=== PATIENT | female | born 1980 | race Caucasian/White ===

== ENCOUNTER 2017-05-17 15:00 | Inpatient (IN) | payer OTHER ==
[~2017-05-17] VITALS: Ht 165.1 cm; Wt 62.0 kg
[~2017-05-17 15:00] MED LIST: AMOX250 PO; BIRTHCONTROL; CIPR500 PO; CLON.1; CLON.1 PO; FERR325 PO; FERROUS SULFATE PO; FERSU220EL PO; FOLI1 PO; HYDHCL25 PO; HYDPAM25 PO; Junel Fe 1-201 EACH PO; LACT10SY PO; LORA1 PO; MEDR10 PO; Omeprazole20 M1 PO; POTCHL10ER PO; POTCHL20ER PO; PRAZ1; PRED10 PO; Prednisone20 MG PO; SERT25; SERT25 PO; SERT50 PO; Senna Plus Tab1 EACH PO; VITAMIN B-122000 MCG PO
[2017-05-17] MEDS ORDERED: Junel Fe 1-201 EACH PO (15:20)
[2017-05-17] MEDS ORDERED: HYDPAM25 PO (15:21)
[2017-05-17] MEDS ORDERED: TEMA15 PO (15:23)
[2017-05-17] MEDS ORDERED: CLON.1 PO ×2 (15:24→22:55)
[2017-05-17 15:44] LABS: BASOPHILS ABSOLUTE AUTO 0.03 K/mm3 (0.00-0.23); BASOPHILS PERCENT AUTO 0 % (0-2); EOSINOPHILS ABSOLUTE AUTO 0.05 K/mm3 (0.00-0.68); EOSINOPHILS PERCENT AUTO 1 % (0-6); Hematocrit 33.2 % (33.0-51.0); Hemoglobin 11.7 g/dL (11.5-16.0); IMMATURE GRAN ABSOLUTE AUTO 0.03 K/mm3 (0.00-0.10); IMMATURE GRAN PERCENT AUTO 0 % (0-1); LYMPHOCYTES ABSOLUTE AUTO 1.71 K/mm3 (0.84-5.20); LYMPHOCYTES PERCENT AUTO 22 % (21-46); MONOCYTES ABSOLUTE AUTO 0.45 K/mm3 (0.16-1.47); MONOCYTES PERCENT AUTO 6 % (4-13); Mean Corpuscular HGB Conc 35.2 g/dL (31.5-36.5); Mean Corpuscular Volume 102 fL (80-100); NEUTROPHILS PERCENT AUTO 71 % (41-73); RDW Standard Deviation 67.5 fL (35.1-46.3); Red Blood Cell Count 3.25 M/mm3 (3.80-5.20); White Blood Cell Count 7.87 K/mm3 (4.00-11.30)
[2017-05-17 15:47] LABS: Mean Platelet Volume 9.8 fL (9.1-12.4); Platelet Count 132 K/mm3 (150-400)
[2017-05-17 16:37] LABS: Alanine Aminotransfer (ALT/SGP 152 U/L (12-78); Albumin, Blood 2.3 g/dL (3.4-5.0); Albumin/Globulin Ratio 0.5 (0.8-1.8); Alk Phos 239 U/L (50-136); Anion Gap 16 mmol/L (6-16); Aspartate Aminotrans (AST/SGOT 776 U/L (12-37); Bilirubin, Total 23.9 mg/dL (0.1-1.0); Blood Urea Nitrogen 7 mg/dL (8-24); Bun/Creatinine Ratio 14.3 (12.0-20.0); CO2, Blood 21 mmol/L (21-32); Calcium, Blood 8.3 mg/dL (8.5-10.1); Chloride, Blood 103 mmol/L (98-108); Creatinine, Blood 0.49 mg/dL (0.40-1.00); Globulin, Blood 5.1 g/dL (2.2-4.0); Glomerular Filtration Rate >60 (60-); Glucose, Blood 98 mg/dL (70-99); Potassium, Blood 2.2 mmol/L (3.5-5.5); Sodium, Blood 140 mmol/L (136-145); Total Protein, Blood 7.4 g/dL (6.4-8.2)
[2017-05-17 16:44] LABS: International Normalized Ratio 1.86; Prothrombin Time Results 19.7 Sec (9.7-11.5)
[2017-05-17 16:58] LABS: Source, Urine Voided
[2017-05-17 17:04] LABS: Appearance, Urine Clear (Clear); Blood, Urine 4+ (Neg); Glucose Qualitative, Urine Neg (Neg); Ketones, Urine 2+ (Neg); Leukocyte Esterase, Urine 1+ (Neg); Nitrite, Urine Neg (Neg); Protein, Urine 1+ (Neg); Urobilinogen, Urine 4+ (Normal)
[2017-05-17 17:12] LABS: Bilirubin, Urine 3+ (Neg); Color, Urine Orange (P-Yellow)
[2017-05-17 17:14] LABS: Bacteria Few /hpf; Squamous Epithelial Cells Few /hpf (Few); White Blood Cells, Urine 0-2 /hpf (0-5)
[2017-05-17] MEDS ORDERED: SERT50 PO (22:56)
[2017-05-18 05:50] LABS: BASOPHILS ABSOLUTE AUTO 0.01 K/mm3 (0.00-0.23); BASOPHILS PERCENT AUTO 0 % (0-2); EOSINOPHILS ABSOLUTE AUTO 0.07 K/mm3 (0.00-0.68); EOSINOPHILS PERCENT AUTO 1 % (0-6); Hemoglobin 10.3 g/dL (11.5-16.0); IMMATURE GRAN ABSOLUTE AUTO 0.03 K/mm3 (0.00-0.10); IMMATURE GRAN PERCENT AUTO 1 % (0-1); LYMPHOCYTES ABSOLUTE AUTO 1.28 K/mm3 (0.84-5.20); LYMPHOCYTES PERCENT AUTO 21 % (21-46); MONOCYTES ABSOLUTE AUTO 0.53 K/mm3 (0.16-1.47); MONOCYTES PERCENT AUTO 9 % (4-13); Mean Corpuscular HGB 35.9 pg (26.0-34.0); Mean Corpuscular HGB Conc 35.5 g/dL (31.5-36.5); Mean Corpuscular Volume 101 fL (80-100); Mean Platelet Volume 9.4 fL (9.1-12.4); NEUTROPHILS ABSOLUTE AUTO 4.25 K/mm3 (1.96-9.15); NEUTROPHILS PERCENT AUTO 69 % (41-73); Platelet Count 106 K/mm3 (150-400); RDW Coefficient Variation 18.5 % (11.7-14.2); RDW Standard Deviation 68.3 fL (35.1-46.3); Red Blood Cell Count 2.87 M/mm3 (3.80-5.20); White Blood Cell Count 6.17 K/mm3 (4.00-11.30)
[2017-05-18 06:09] LABS: International Normalized Ratio 1.81; Prothrombin Time Results 19.2 Sec (9.7-11.5)
[2017-05-18 06:16] LABS: Alanine Aminotransfer (ALT/SGP 147 U/L (12-78); Albumin, Blood 2.1 g/dL (3.4-5.0); Albumin/Globulin Ratio 0.4 (0.8-1.8); Alk Phos 205 U/L (50-136); Anion Gap 10 mmol/L (6-16); Aspartate Aminotrans (AST/SGOT 660 U/L (12-37); Bilirubin, Total 23.2 mg/dL (0.1-1.0); Blood Urea Nitrogen 6 mg/dL (8-24); Bun/Creatinine Ratio 11.4 (12.0-20.0); CO2, Blood 23 mmol/L (21-32); Calcium, Blood 7.6 mg/dL (8.5-10.1); Chloride, Blood 109 mmol/L (98-108); Creatinine, Blood 0.53 mg/dL (0.40-1.00); Globulin, Blood 4.7 g/dL (2.2-4.0); Glomerular Filtration Rate >60 (60-); Glucose, Blood 125 mg/dL (70-99); Sodium, Blood 142 mmol/L (136-145); Total Protein, Blood 6.8 g/dL (6.4-8.2)
[2017-05-18 06:18] LABS: Potassium, Blood 2.1 mmol/L (3.5-5.5)
[2017-05-18 16:52] LABS: Anion Gap 11 mmol/L (6-16); Blood Urea Nitrogen 6 mg/dL (8-24); Bun/Creatinine Ratio 11.2 (12.0-20.0); CO2, Blood 20 mmol/L (21-32); Calcium, Blood 8.2 mg/dL (8.5-10.1); Chloride, Blood 113 mmol/L (98-108); Creatinine, Blood 0.54 mg/dL (0.40-1.00); Glomerular Filtration Rate >60 (60-); Glucose, Blood 163 mg/dL (70-99); Potassium, Blood 2.8 mmol/L (3.5-5.5); Sodium, Blood 144 mmol/L (136-145)
[2017-05-19 07:56] LABS: Alanine Aminotransfer (ALT/SGP 162 U/L (12-78); Albumin, Blood 1.9 g/dL (3.4-5.0); Albumin/Globulin Ratio 0.4 (0.8-1.8); Alk Phos 190 U/L (50-136); Anion Gap 9 mmol/L (6-16); Aspartate Aminotrans (AST/SGOT 535 U/L (12-37); Bilirubin, Total 22.9 mg/dL (0.1-1.0); Blood Urea Nitrogen 5 mg/dL (8-24); Bun/Creatinine Ratio 9.1 (12.0-20.0); CO2, Blood 21 mmol/L (21-32); Chloride, Blood 116 mmol/L (98-108); Creatinine, Blood 0.55 mg/dL (0.40-1.00); Globulin, Blood 4.7 g/dL (2.2-4.0); Glomerular Filtration Rate >60 (60-); Glucose, Blood 137 mg/dL (70-99); Potassium, Blood 2.8 mmol/L (3.5-5.5); Sodium, Blood 146 mmol/L (136-145); Total Protein, Blood 6.6 g/dL (6.4-8.2)
[2017-05-19 08:46] LABS: BASOPHILS ABSOLUTE AUTO 0.04 K/mm3 (0.00-0.23); BASOPHILS PERCENT AUTO 1 % (0-2); EOSINOPHILS ABSOLUTE AUTO 0.12 K/mm3 (0.00-0.68); EOSINOPHILS PERCENT AUTO 2 % (0-6); Hematocrit 28.6 % (33.0-51.0); Hemoglobin 9.8 g/dL (11.5-16.0); IMMATURE GRAN ABSOLUTE AUTO 0.02 K/mm3 (0.00-0.10); IMMATURE GRAN PERCENT AUTO 0 % (0-1); LYMPHOCYTES ABSOLUTE AUTO 1.15 K/mm3 (0.84-5.20); LYMPHOCYTES PERCENT AUTO 20 % (21-46); MONOCYTES ABSOLUTE AUTO 0.47 K/mm3 (0.16-1.47); MONOCYTES PERCENT AUTO 8 % (4-13); Mean Corpuscular HGB 35.6 pg (26.0-34.0); Mean Corpuscular HGB Conc 34.3 g/dL (31.5-36.5); Mean Platelet Volume 10.1 fL (9.1-12.4); NEUTROPHILS ABSOLUTE AUTO 3.83 K/mm3 (1.96-9.15); NEUTROPHILS PERCENT AUTO 68 % (41-73); Platelet Count 109 K/mm3 (150-400); RDW Coefficient Variation 19.5 % (11.7-14.2); RDW Standard Deviation 73.5 fL (35.1-46.3); Red Blood Cell Count 2.75 M/mm3 (3.80-5.20); White Blood Cell Count 5.63 K/mm3 (4.00-11.30)
[2017-05-19 08:47] LABS: Mean Corpuscular Volume 104 fL (80-100)
[2017-05-19 09:15] LABS: Alanine Aminotransfer (ALT/SGP 161 U/L (12-78); Albumin, Blood 1.9 g/dL (3.4-5.0); Albumin/Globulin Ratio 0.4 (0.8-1.8); Alk Phos 192 U/L (50-136); Anion Gap 9 mmol/L (6-16); Aspartate Aminotrans (AST/SGOT 531 U/L (12-37); Bilirubin, Total 23.1 mg/dL (0.1-1.0); Blood Urea Nitrogen 4 mg/dL (8-24); Bun/Creatinine Ratio 6.8 (12.0-20.0); CO2, Blood 21 mmol/L (21-32); Calcium, Blood 7.9 mg/dL (8.5-10.1); Chloride, Blood 116 mmol/L (98-108); Creatinine, Blood 0.59 mg/dL (0.40-1.00); Globulin, Blood 4.6 g/dL (2.2-4.0); Glomerular Filtration Rate >60 (60-); Glucose, Blood 118 mg/dL (70-99); Potassium, Blood 2.9 mmol/L (3.5-5.5); Sodium, Blood 146 mmol/L (136-145); Total Protein, Blood 6.5 g/dL (6.4-8.2)
[2017-05-20 07:57] LABS: BASOPHILS ABSOLUTE AUTO 0.03 K/mm3 (0.00-0.23); BASOPHILS PERCENT AUTO 1 % (0-2); EOSINOPHILS ABSOLUTE AUTO 0.13 K/mm3 (0.00-0.68); EOSINOPHILS PERCENT AUTO 2 % (0-6); Hematocrit 27.4 % (33.0-51.0); Hemoglobin 9.4 g/dL (11.5-16.0); Mean Corpuscular HGB 35.7 pg (26.0-34.0); Mean Corpuscular HGB Conc 34.3 g/dL (31.5-36.5); Mean Corpuscular Volume 104 fL (80-100); Platelet Count 107 K/mm3 (150-400); RDW Coefficient Variation 19.6 % (11.7-14.2); RDW Standard Deviation 74.3 fL (35.1-46.3); Red Blood Cell Count 2.63 M/mm3 (3.80-5.20); White Blood Cell Count 6.23 K/mm3 (4.00-11.30)
[2017-05-20 08:01] LABS: IMMATURE GRAN ABSOLUTE AUTO 0.03 K/mm3 (0.00-0.10); IMMATURE GRAN PERCENT AUTO 1 % (0-1); LYMPHOCYTES PERCENT AUTO 29 % (21-46); MONOCYTES PERCENT AUTO 8 % (4-13); NEUTROPHILS ABSOLUTE AUTO 3.74 K/mm3 (1.96-9.15); NEUTROPHILS PERCENT AUTO 60 % (41-73)
[2017-05-20 08:20] LABS: Alanine Aminotransfer (ALT/SGP 161 U/L (12-78); Albumin, Blood 1.9 g/dL (3.4-5.0); Albumin/Globulin Ratio 0.4 (0.8-1.8); Alk Phos 179 U/L (50-136); Anion Gap 7 mmol/L (6-16); Aspartate Aminotrans (AST/SGOT 363 U/L (12-37); Bilirubin, Total 24.5 mg/dL (0.1-1.0); Blood Urea Nitrogen 4 mg/dL (8-24); Bun/Creatinine Ratio 7.8 (12.0-20.0); CO2, Blood 23 mmol/L (21-32); Chloride, Blood 108 mmol/L (98-108); Creatinine, Blood 0.51 mg/dL (0.40-1.00); Globulin, Blood 4.7 g/dL (2.2-4.0); Glomerular Filtration Rate >60 (60-); Glucose, Blood 78 mg/dL (70-99); Potassium, Blood 3.3 mmol/L (3.5-5.5); Sodium, Blood 138 mmol/L (136-145); Total Protein, Blood 6.6 g/dL (6.4-8.2)
[2017-05-21 07:20] LABS: BASOPHILS ABSOLUTE AUTO 0.02 K/mm3 (0.00-0.23); BASOPHILS PERCENT AUTO 1 % (0-2); EOSINOPHILS ABSOLUTE AUTO 0.06 K/mm3 (0.00-0.68); EOSINOPHILS PERCENT AUTO 1 % (0-6); Hematocrit 26.4 % (33.0-51.0); Hemoglobin 9.1 g/dL (11.5-16.0); IMMATURE GRAN ABSOLUTE AUTO 0.03 K/mm3 (0.00-0.10); IMMATURE GRAN PERCENT AUTO 1 % (0-1); LYMPHOCYTES ABSOLUTE AUTO 0.96 K/mm3 (0.84-5.20); LYMPHOCYTES PERCENT AUTO 22 % (21-46); MONOCYTES ABSOLUTE AUTO 0.46 K/mm3 (0.16-1.47); MONOCYTES PERCENT AUTO 11 % (4-13); Mean Corpuscular HGB 36.4 pg (26.0-34.0); Mean Corpuscular HGB Conc 34.5 g/dL (31.5-36.5); Mean Corpuscular Volume 106 fL (80-100); Mean Platelet Volume 10.2 fL (9.1-12.4); NEUTROPHILS ABSOLUTE AUTO 2.86 K/mm3 (1.96-9.15); NEUTROPHILS PERCENT AUTO 65 % (41-73); Platelet Count 98 K/mm3 (150-400); RDW Coefficient Variation 19.5 % (11.7-14.2); RDW Standard Deviation 74.4 fL (35.1-46.3); White Blood Cell Count 4.39 K/mm3 (4.00-11.30)
[2017-05-21 08:04] LABS: Alanine Aminotransfer (ALT/SGP 136 U/L (12-78); Albumin, Blood 1.7 g/dL (3.4-5.0); Albumin/Globulin Ratio 0.4 (0.8-1.8); Alk Phos 169 U/L (50-136); Anion Gap 8 mmol/L (6-16); Aspartate Aminotrans (AST/SGOT 240 U/L (12-37); Bilirubin, Total 23.8 mg/dL (0.1-1.0); Blood Urea Nitrogen 5 mg/dL (8-24); Bun/Creatinine Ratio 9.6 (12.0-20.0); CO2, Blood 21 mmol/L (21-32); Calcium, Blood 8.1 mg/dL (8.5-10.1); Chloride, Blood 106 mmol/L (98-108); Creatinine, Blood 0.52 mg/dL (0.40-1.00); Globulin, Blood 4.6 g/dL (2.2-4.0); Glomerular Filtration Rate >60 (60-); Glucose, Blood 90 mg/dL (70-99); Potassium, Blood 3.3 mmol/L (3.5-5.5); Sodium, Blood 135 mmol/L (136-145); Total Protein, Blood 6.3 g/dL (6.4-8.2)
[2017-05-23 06:06] LABS: BASOPHILS ABSOLUTE AUTO 0.03 K/mm3 (0.00-0.23); BASOPHILS PERCENT AUTO 1 % (0-2); EOSINOPHILS ABSOLUTE AUTO 0.09 K/mm3 (0.00-0.68); EOSINOPHILS PERCENT AUTO 2 % (0-6); Hematocrit 26.5 % (33.0-51.0); Hemoglobin 9.1 g/dL (11.5-16.0); IMMATURE GRAN ABSOLUTE AUTO 0.04 K/mm3 (0.00-0.10); IMMATURE GRAN PERCENT AUTO 1 % (0-1); LYMPHOCYTES ABSOLUTE AUTO 1.12 K/mm3 (0.84-5.20); LYMPHOCYTES PERCENT AUTO 26 % (21-46); MONOCYTES ABSOLUTE AUTO 0.49 K/mm3 (0.16-1.47); MONOCYTES PERCENT AUTO 11 % (4-13); Mean Corpuscular HGB 36.4 pg (26.0-34.0); Mean Corpuscular HGB Conc 34.3 g/dL (31.5-36.5); Mean Corpuscular Volume 106 fL (80-100); Mean Platelet Volume 10.3 fL (9.1-12.4); NEUTROPHILS ABSOLUTE AUTO 2.63 K/mm3 (1.96-9.15); NEUTROPHILS PERCENT AUTO 60 % (41-73); NRBC ABSOLUTE 0.02 K/mm3 (0.00-0.02); NRBC Auto 0.5 /100 WBC (0.0-0.2); Platelet Count 105 K/mm3 (150-400); RDW Coefficient Variation 19.9 % (11.7-14.2); RDW Standard Deviation 77.4 fL (35.1-46.3)
[2017-05-23 06:32] LABS: Alanine Aminotransfer (ALT/SGP 101 U/L (12-78); Albumin, Blood 1.6 g/dL (3.4-5.0); Albumin/Globulin Ratio 0.4 (0.8-1.8); Alk Phos 156 U/L (50-136); Anion Gap 9 mmol/L (6-16); Aspartate Aminotrans (AST/SGOT 124 U/L (12-37); Bilirubin, Total 23.3 mg/dL (0.1-1.0); Blood Urea Nitrogen 5 mg/dL (8-24); Bun/Creatinine Ratio 11.4 (12.0-20.0); CO2, Blood 22 mmol/L (21-32); Calcium, Blood 7.8 mg/dL (8.5-10.1); Chloride, Blood 106 mmol/L (98-108); Creatinine, Blood 0.44 mg/dL (0.40-1.00); Globulin, Blood 4.4 g/dL (2.2-4.0); Glomerular Filtration Rate >60 (60-); Glucose, Blood 100 mg/dL (70-99); Sodium, Blood 137 mmol/L (136-145)
[2017-05-24 05:48] LABS: BASOPHILS ABSOLUTE AUTO 0.03 K/mm3 (0.00-0.23); BASOPHILS PERCENT AUTO 1 % (0-2); EOSINOPHILS ABSOLUTE AUTO 0.07 K/mm3 (0.00-0.68); EOSINOPHILS PERCENT AUTO 2 % (0-6); Hematocrit 27.3 % (33.0-51.0); Hemoglobin 9.2 g/dL (11.5-16.0); IMMATURE GRAN ABSOLUTE AUTO 0.05 K/mm3 (0.00-0.10); IMMATURE GRAN PERCENT AUTO 1 % (0-1); LYMPHOCYTES ABSOLUTE AUTO 1.24 K/mm3 (0.84-5.20); LYMPHOCYTES PERCENT AUTO 28 % (21-46); MONOCYTES ABSOLUTE AUTO 0.46 K/mm3 (0.16-1.47); MONOCYTES PERCENT AUTO 11 % (4-13); Mean Corpuscular HGB 36.1 pg (26.0-34.0); Mean Corpuscular HGB Conc 33.7 g/dL (31.5-36.5); Mean Corpuscular Volume 107 fL (80-100); Mean Platelet Volume 10.3 fL (9.1-12.4); NEUTROPHILS ABSOLUTE AUTO 2.54 K/mm3 (1.96-9.15); NEUTROPHILS PERCENT AUTO 58 % (41-73); Platelet Count 119 K/mm3 (150-400); RDW Coefficient Variation 19.9 % (11.7-14.2); RDW Standard Deviation 78.9 fL (35.1-46.3); Red Blood Cell Count 2.55 M/mm3 (3.80-5.20); White Blood Cell Count 4.39 K/mm3 (4.00-11.30)
[2017-05-24 06:12] LABS: Alanine Aminotransfer (ALT/SGP 89 U/L (12-78); Albumin, Blood 1.7 g/dL (3.4-5.0); Albumin/Globulin Ratio 0.4 (0.8-1.8); Alk Phos 155 U/L (50-136); Anion Gap 9 mmol/L (6-16); Aspartate Aminotrans (AST/SGOT 104 U/L (12-37); Blood Urea Nitrogen 6 mg/dL (8-24); Bun/Creatinine Ratio 11.7 (12.0-20.0); CO2, Blood 23 mmol/L (21-32); Calcium, Blood 7.8 mg/dL (8.5-10.1); Chloride, Blood 106 mmol/L (98-108); Creatinine, Blood 0.51 mg/dL (0.40-1.00); Globulin, Blood 4.6 g/dL (2.2-4.0); Glomerular Filtration Rate >60 (60-); Glucose, Blood 91 mg/dL (70-99); Sodium, Blood 138 mmol/L (136-145); Total Protein, Blood 6.3 g/dL (6.4-8.2)
[2017-05-25 05:10] LABS: BASOPHILS ABSOLUTE AUTO 0.03 K/mm3 (0.00-0.23); BASOPHILS PERCENT AUTO 1 % (0-2); EOSINOPHILS ABSOLUTE AUTO 0.09 K/mm3 (0.00-0.68); EOSINOPHILS PERCENT AUTO 2 % (0-6); Hematocrit 26.8 % (33.0-51.0); IMMATURE GRAN ABSOLUTE AUTO 0.03 K/mm3 (0.00-0.10); IMMATURE GRAN PERCENT AUTO 1 % (0-1); LYMPHOCYTES ABSOLUTE AUTO 1.53 K/mm3 (0.84-5.20); LYMPHOCYTES PERCENT AUTO 29 % (21-46); MONOCYTES ABSOLUTE AUTO 0.71 K/mm3 (0.16-1.47); MONOCYTES PERCENT AUTO 13 % (4-13); Mean Corpuscular HGB 36.6 pg (26.0-34.0); Mean Corpuscular HGB Conc 33.6 g/dL (31.5-36.5); Mean Corpuscular Volume 109 fL (80-100); Mean Platelet Volume 9.9 fL (9.1-12.4); NEUTROPHILS ABSOLUTE AUTO 2.93 K/mm3 (1.96-9.15); NEUTROPHILS PERCENT AUTO 55 % (41-73); NRBC ABSOLUTE 0.02 K/mm3 (0.00-0.02); NRBC Auto 0.4 /100 WBC (0.0-0.2); Platelet Count 124 K/mm3 (150-400); RDW Coefficient Variation 20.6 % (11.7-14.2); RDW Standard Deviation 82.3 fL (35.1-46.3); Red Blood Cell Count 2.46 M/mm3 (3.80-5.20); White Blood Cell Count 5.32 K/mm3 (4.00-11.30)
[2017-05-25 05:39] LABS: Alanine Aminotransfer (ALT/SGP 76 U/L (12-78); Albumin, Blood 1.7 g/dL (3.4-5.0); Albumin/Globulin Ratio 0.4 (0.8-1.8); Alk Phos 149 U/L (50-136); Anion Gap 8 mmol/L (6-16); Aspartate Aminotrans (AST/SGOT 97 U/L (12-37); Bilirubin, Total 23.7 mg/dL (0.1-1.0); Blood Urea Nitrogen 7 mg/dL (8-24); Bun/Creatinine Ratio 13.1 (12.0-20.0); CO2, Blood 21 mmol/L (21-32); Calcium, Blood 7.7 mg/dL (8.5-10.1); Chloride, Blood 109 mmol/L (98-108); Creatinine, Blood 0.54 mg/dL (0.40-1.00); Globulin, Blood 4.4 g/dL (2.2-4.0); Glomerular Filtration Rate >60 (60-); Glucose, Blood 71 mg/dL (70-99); Potassium, Blood 3.9 mmol/L (3.5-5.5); Sodium, Blood 138 mmol/L (136-145); Total Protein, Blood 6.1 g/dL (6.4-8.2)
[2017-05-25] MEDS ORDERED: LORA1 PO (11:47)
[2017-05-25] MEDS ORDERED: POTCHL20ER PO (11:48)
[2017-05-25] MEDS ORDERED: ONE DAILY COMP1 EACH PO (11:50)
[2017-05-25] MEDS ORDERED: THIA100 PO (11:51)
[2018-02-22] MEDS ORDERED: GABA300 PO (09:04)
[2018-02-22] MEDS ORDERED: SERT25 PO (09:04)
[2018-02-22] MEDS ORDERED: SPIR50 PO (09:05)
[2018-02-22] MEDS ORDERED: POTCHL10ER PO (09:05)
[2018-02-27] MEDS ORDERED: MAGOXI400 PO (13:46)
[2018-02-27] MEDS ORDERED: LACT10SY PO (13:46)
[2018-02-27] MEDS ORDERED: FOLI1 PO (13:47)
[2018-02-27] MEDS ORDERED: Hair, Skin & N1 EACH PO (13:47)
[2018-03-10] MEDS ORDERED: K-Dur20 MEQ PO (21:39)
[2018-03-15] MEDS ORDERED: LORA1 PO (19:19)
[2018-03-17] MEDS ORDERED: THIA100 PO (15:28)
[2018-03-17] MEDS ORDERED: CEPH500 PO (15:29)
[2018-03-21] MEDS ORDERED: POTCHL20ER PO (14:47)
[2018-03-21] MEDS ORDERED: LORA.5 PO (14:54)
== END 2017-05-25 17:33 | disposition home or self-care (01) | DRG 442 ==
LOC: ER 15:00 → MEDS 17:33 → ENPENDDIS 05-25 10:41 → MEDS 05-25 17:33
PROVIDERS: Family Medicine; Internal Medicine; Internal Medicine Endocrinology, Diabetes & Metabolism; Nurse Practitioner Family
DX: K72.00 Acute and subacute hepatic failure without coma (principal); K76.6 Portal hypertension; K70.10 Alcoholic hepatitis without ascites; R16.2 Hepatomegaly with splenomegaly, not elsewhere classified; E87.6 Hypokalemia; K70.30 Alcoholic cirrhosis of liver without ascites; R79.1 Abnormal coagulation profile; F10.20 Alcohol dependence, uncomplicated; D63.8 Anemia in other chronic diseases classified elsewhere; E80.6 Other disorders of bilirubin metabolism; Z79.899 Other long term (current) drug therapy; Z79.52 Long term (current) use of systemic steroids; Z91.14 Patient's other noncompliance with medication regimen
CPT/HCPCS: 36415; 80048; 80053; 81001; 82140; 83735; 85025; 85610; 87086; 93005; 93010; 96365; 96366; 96375; 97161; 97530; 99285; C9113; G8978; G8979; G8980; J2001; J2060; J2405; J3411; J3475; J3480; J7030; J7042

== ENCOUNTER → 2018-05-30 | Outpatient (CLI) | payer OTHER ==
[~2018-05-30] MED LIST changes: +CEPH500 PO; +GABA300 PO; +Hair, Skin & N1 EACH PO; +K-Dur20 MEQ PO; +LORA.5 PO; +MAGOXI400 PO; +ONE DAILY COMP1 EACH PO; +SPIR50 PO; +TEMA15 PO; +THIA100 PO
== END | disposition home or self-care (01) ==
LOC: LAB SHORT 16:39 → LAB EV 16:39
DX: N39.0 Urinary tract infection, site not specified (principal)
CPT/HCPCS: 87086; 87147

== ENCOUNTER → 2019-04-05 | Outpatient (CLI) | payer OTHER ==
[~2019-04-05] MED LIST changes: +ASCO500 PO; +FERSU300 PO; +SERT100 PO
[2019-04-05 15:03] LABS: BASOPHILS ABSOLUTE AUTO 0.01 K/mm3 (0.00-0.23); BASOPHILS PERCENT AUTO 1 % (0-2); EOSINOPHILS ABSOLUTE AUTO 0.05 K/mm3 (0.00-0.68); EOSINOPHILS PERCENT AUTO 2 % (0-6); Hematocrit 30.9 % (33.0-51.0); Hemoglobin 10.3 g/dL (11.5-16.0); IMMATURE GRAN ABSOLUTE AUTO 0.01 K/mm3 (0.00-0.10); IMMATURE GRAN PERCENT AUTO 1 % (0-1); LYMPHOCYTES ABSOLUTE AUTO 0.79 K/mm3 (0.84-5.20); LYMPHOCYTES PERCENT AUTO 38 % (21-46); MONOCYTES ABSOLUTE AUTO 0.25 K/mm3 (0.16-1.47); MONOCYTES PERCENT AUTO 12 % (4-13); Mean Corpuscular HGB 33.7 pg (26.0-34.0); Mean Corpuscular HGB Conc 33.3 g/dL (31.5-36.5); NEUTROPHILS ABSOLUTE AUTO 0.95 K/mm3 (1.96-9.15); NEUTROPHILS PERCENT AUTO 46 % (41-73); RDW Coefficient Variation 15.6 % (11.7-14.2); Red Blood Cell Count 3.06 M/mm3 (3.80-5.20); White Blood Cell Count 2.06 K/mm3 (4.00-11.30)
[2019-04-05 15:09] LABS: Mean Corpuscular Volume 101 fL (80-100); Mean Platelet Volume 10.4 fL (9.1-12.4); Platelet Count 76 K/mm3 (150-400)
[2019-04-05 15:12] LABS: Alanine Aminotransfer (ALT/SGP 33 U/L (12-78); Albumin, Blood 3.4 g/dL (3.4-5.0); Alk Phos 122 U/L (40-126); Anion Gap 14 mmol/L (6-16); Aspartate Aminotrans (AST/SGOT 60 U/L (12-37); Bilirubin, Total 0.9 mg/dL (0.1-1.0); Blood Urea Nitrogen 9 mg/dL (8-24); Bun/Creatinine Ratio 11.8 (12.0-20.0); CO2, Blood 24 mmol/L (21-32); Calcium, Blood 9.1 mg/dL (8.5-10.1); Chloride, Blood 106 mmol/L (98-108); Creatinine, Blood 0.76 mg/dL (0.40-1.00); Globulin, Blood 3.4 g/dL (2.2-4.0); Glomerular Filtration Rate >60 (60-); Glucose, Blood 76 mg/dL (70-99); Potassium, Blood 3.6 mmol/L (3.5-5.5); Sodium, Blood 144 mmol/L (136-145); Total Protein, Blood 6.8 g/dL (6.4-8.2)
[2019-04-05 16:01] LABS: International Normalized Ratio 1.38; Prothrombin Time Results 14.2 Sec (9.7-11.5)
== END | disposition home or self-care (01) ==
LOC: LAB EV 14:53 → LAB SHORT 14:53
PROVIDERS: Physician Assistant
DX: D68.59 Other primary thrombophilia (principal); R55 Syncope and collapse; N39.0 Urinary tract infection, site not specified
CPT/HCPCS: 80053; 85025; 85245; 85246; 85610; 85730; 87086

== ENCOUNTER 2019-04-06 11:13 | Emergency (ER) | payer OTHER ==
[~2019-04-06] VITALS: Ht 170.2 cm; Wt 65.8 kg
[~2019-04-06 11:13] MED LIST changes: -ASCO500 PO; -FERSU300 PO
[2019-04-06] MEDS ORDERED: ASCO500 PO (12:19)
[2019-04-06] MEDS ORDERED: FERSU300 PO (12:20)
== END 2019-04-06 14:00 | disposition home or self-care (01) ==
LOC: ER 11:13
DX: F10.20 Alcohol dependence, uncomplicated (principal); R53.1 Weakness; R79.9 Abnormal finding of blood chemistry, unspecified; Z79.899 Other long term (current) drug therapy
CPT/HCPCS: 80053; 85025; 99283

== ENCOUNTER 2020-04-29 14:36 | Emergency (ER) | payer OTHER ==
[~2020-04-29] VITALS: Ht 170.2 cm; Wt 70.3 kg
[~2020-04-29 14:36] MED LIST changes: +ASCO500 PO; +FERSU300 PO
[2020-04-29 15:19] LABS: BASOPHILS ABSOLUTE AUTO 0.03 K/mm3 (0.00-0.23); BASOPHILS PERCENT AUTO 1 % (0-2); EOSINOPHILS ABSOLUTE AUTO 0.06 K/mm3 (0.00-0.68); EOSINOPHILS PERCENT AUTO 2 % (0-6); Hematocrit 24.7 % (33.0-51.0); Hemoglobin 8.3 g/dL (11.5-16.0); IMMATURE GRAN ABSOLUTE AUTO 0.01 K/mm3 (0.00-0.10); IMMATURE GRAN PERCENT AUTO 0 % (0-1); LYMPHOCYTES ABSOLUTE AUTO 1.41 K/mm3 (0.84-5.20); LYMPHOCYTES PERCENT AUTO 35 % (21-46); MONOCYTES ABSOLUTE AUTO 0.25 K/mm3 (0.16-1.47); MONOCYTES PERCENT AUTO 6 % (4-13); Mean Corpuscular HGB 34.9 pg (26.0-34.0); Mean Corpuscular HGB Conc 33.6 g/dL (31.5-36.5); Mean Corpuscular Volume 104 fL (80-100); Mean Platelet Volume 9.8 fL (9.1-12.4); NEUTROPHILS ABSOLUTE AUTO 2.28 K/mm3 (1.96-9.15); NEUTROPHILS PERCENT AUTO 57 % (41-73); Platelet Count 119 K/mm3 (150-400); RDW Coefficient Variation 15.4 % (11.7-14.2); Red Blood Cell Count 2.38 M/mm3 (3.80-5.20); White Blood Cell Count 4.04 K/mm3 (4.00-11.30)
[2020-04-29 15:38] LABS: Alanine Aminotransfer (ALT/SGP 49 U/L (12-78); Albumin, Blood 3.6 g/dL (3.4-5.0); Alk Phos 140 U/L (50-136); Anion Gap 9 mmol/L (6-16); Aspartate Aminotrans (AST/SGOT 100 U/L (12-37); Bilirubin, Total 1.5 mg/dL (0.1-1.0); Blood Urea Nitrogen 12 mg/dL (8-24); Bun/Creatinine Ratio 18.7 (12.0-20.0); CO2, Blood 25 mmol/L (21-32); Calcium, Blood 8.6 mg/dL (8.5-10.1); Chloride, Blood 107 mmol/L (98-108); Creatinine, Blood 0.64 mg/dL (0.40-1.00); Globulin, Blood 3.7 g/dL (2.2-4.0); Glomerular Filtration Rate >60 (60-); Glucose, Blood 97 mg/dL (70-99); Potassium, Blood 3.8 mmol/L (3.5-5.5); Sodium, Blood 141 mmol/L (136-145); Total Protein, Blood 7.3 g/dL (6.4-8.2)
[2020-04-29 19:00] LABS: Calcium, Ionized (POC) 1.11 mmol/L (1.10-1.46); Chloride (POC) 104 mmol/L (98-108); Creatinine (POC) 0.6 mg/dL (0.6-1.0); Glucose (ISTAT POC) 81 mg/dL (70-99); Hemoglobin (POC) 7.8 g/dL (12.0-16.0); Potassium (POC) 3.4 mmol/L (3.5-5.5); Sodium (POC) 139 mmol/L (135-148); Total CO2 (POC) 24 mmol/L (21-32)
== END 2020-04-29 20:56 | disposition home or self-care (01) ==
LOC: ER 14:36
PROVIDERS: Physician Assistant; Student in an Organized Health Care Education/Training Program
DX: N92.0 Excessive and frequent menstruation with regular cycle (principal); Z79.899 Other long term (current) drug therapy
CPT/HCPCS: 36415; 80047; 80053; 84703; 85014; 85025; 86850; 86900; 86901; 99284; A9270

== ENCOUNTER 2020-06-18 12:04 | Inpatient (IN) | payer OTHER ==
[~2020-06-18] VITALS: Ht 170.2 cm; Wt 73.7 kg
--- NOTE | 2020-06-18 12:30 | NUR ---
PT ARRIVED DIRECT ADMIT TO ROOM 209 PT BEING ADMITTED FOR HEAVY VAGINAL BLEEDING REPORTS 4 DAYS WITH LG CLOTS WEARING ATTENDS PT STATED SHE HAS HAD THIS HAPPEN IN THE PAST PT IS VERY PALE ORIENTED TO ROOM
[2020-06-18 13:58] LABS: BASOPHILS ABSOLUTE AUTO 0.01 K/mm3 (0.00-0.23); BASOPHILS PERCENT AUTO 0 % (0-2); EOSINOPHILS ABSOLUTE AUTO 0.15 K/mm3 (0.00-0.68); EOSINOPHILS PERCENT AUTO 4 % (0-6); Hematocrit 19.6 % (33.0-51.0); Hemoglobin 6.3 g/dL (11.5-16.0); IMMATURE GRAN ABSOLUTE AUTO 0.01 K/mm3 (0.00-0.10); IMMATURE GRAN PERCENT AUTO 0 % (0-1); LYMPHOCYTES ABSOLUTE AUTO 1.62 K/mm3 (0.84-5.20); LYMPHOCYTES PERCENT AUTO 39 % (21-46); MONOCYTES ABSOLUTE AUTO 0.28 K/mm3 (0.16-1.47); MONOCYTES PERCENT AUTO 7 % (4-13); Mean Corpuscular HGB 32.5 pg (26.0-34.0); Mean Corpuscular HGB Conc 32.1 g/dL (31.5-36.5); Mean Corpuscular Volume 101 fL (80-100); Mean Platelet Volume 9.7 fL (9.1-12.4); NEUTROPHILS PERCENT AUTO 51 % (41-73); Platelet Count 123 K/mm3 (150-400); RDW Coefficient Variation 16.6 % (11.7-14.2); Red Blood Cell Count 1.94 M/mm3 (3.80-5.20); White Blood Cell Count 4.17 K/mm3 (4.00-11.30)
[2020-06-18 14:13] LABS: Anion Gap 8 mmol/L (6-16); Blood Urea Nitrogen 9 mg/dL (8-24); Bun/Creatinine Ratio 12.8 (12.0-20.0); CO2, Blood 23 mmol/L (21-32); Calcium, Blood 7.9 mg/dL (8.5-10.1); Chloride, Blood 110 mmol/L (98-108); Glomerular Filtration Rate >60 (60-); Glucose, Blood 89 mg/dL (70-99); Potassium, Blood 4.5 mmol/L (3.5-5.5); Sodium, Blood 141 mmol/L (136-145)
--- NOTE | 2020-06-18 15:15 | NUR ---
[address] SARKAR BY TO SEE PT
--- NOTE | 2020-06-18 17:45 | NUR ---
SECOND UNIT PRBC INFUSING PT HAD PEVLIC US
[2020-06-18 23:08] LABS: Hematocrit 20.6 % (33.0-51.0); Hemoglobin 6.9 g/dL (11.5-16.0); Mean Corpuscular HGB 32.2 pg (26.0-34.0); Mean Corpuscular HGB Conc 33.5 g/dL (31.5-36.5); Mean Platelet Volume 9.3 fL (9.1-12.4); Platelet Count 107 K/mm3 (150-400); RDW Coefficient Variation 17.3 % (11.7-14.2); RDW Standard Deviation 58.4 fL (35.1-46.3); Red Blood Cell Count 2.14 M/mm3 (3.80-5.20); White Blood Cell Count 3.42 K/mm3 (4.00-11.30)
[2020-06-18 23:09] LABS: Mean Corpuscular Volume 96 fL (80-100)
[2020-06-18 23:21] LABS: International Normalized Ratio 1.2; Prothrombin Time Results 12.7 Sec (9.7-11.5)
[2020-06-18 23:24] LABS: Albumin, Blood 2.4 g/dL (3.4-5.0); Albumin/Globulin Ratio 0.8 (0.8-1.8); Bilirubin, Direct 0.8 mg/dL (0.0-0.3); Bilirubin, Indirect 1.6 mg/dL (0.1-0.7); Bilirubin, Total 2.4 mg/dL (0.1-1.0); Total Protein, Blood 5.4 g/dL (6.4-8.2)
[2020-06-19 05:23] LABS: BASOPHILS ABSOLUTE AUTO 0.01 K/mm3 (0.00-0.23); BASOPHILS PERCENT AUTO 0 % (0-2); EOSINOPHILS ABSOLUTE AUTO 0.16 K/mm3 (0.00-0.68); EOSINOPHILS PERCENT AUTO 5 % (0-6); Hematocrit 23.7 % (33.0-51.0); Hemoglobin 7.9 g/dL (11.5-16.0); IMMATURE GRAN ABSOLUTE AUTO 0.01 K/mm3 (0.00-0.10); IMMATURE GRAN PERCENT AUTO 0 % (0-1); LYMPHOCYTES ABSOLUTE AUTO 1.17 K/mm3 (0.84-5.20); LYMPHOCYTES PERCENT AUTO 35 % (21-46); MONOCYTES ABSOLUTE AUTO 0.23 K/mm3 (0.16-1.47); MONOCYTES PERCENT AUTO 7 % (4-13); Mean Corpuscular HGB 31.5 pg (26.0-34.0); Mean Corpuscular HGB Conc 33.3 g/dL (31.5-36.5); Mean Corpuscular Volume 94 fL (80-100); Mean Platelet Volume 9.6 fL (9.1-12.4); NEUTROPHILS ABSOLUTE AUTO 1.78 K/mm3 (1.96-9.15); NEUTROPHILS PERCENT AUTO 53 % (41-73); Platelet Count 109 K/mm3 (150-400); RDW Coefficient Variation 18.7 % (11.7-14.2); RDW Standard Deviation 62.2 fL (35.1-46.3); Red Blood Cell Count 2.51 M/mm3 (3.80-5.20); White Blood Cell Count 3.36 K/mm3 (4.00-11.30)
--- NOTE | 2020-06-19 05:36 | NUR ---
SHIFT SUMMARY: ORALIA IS A&OX4. VSS. ONE UNIT OF PRBCs INFUSED THIS SHIFT. SHE CONTINUES TO REPORT DIZZINESS WITH AMBULATION TO THE POINT SHE FELT MORE COMFORTABLE USING THE BEDSIDE COMMODE THAN AMBULATING TO THE BATHROOM THIS MORNING. ONE ATTENDS WAS SATURATED OVER THE SPAN OF APPROX 7 HOURS. SHE REPORTS FEELING THAT THE BLEEDING MAY BE SLOWING. SHE DID PASS APPROX 5 CLOTS THIS MORNING RANGING IN SIZE FROM ABOUT A DAVIS TO A 50 CENT PIECE IN DIAMETER. SHE IS TOLERATING PO INTAKE WELL. IV TO R AC PATENT. SHE USES THE CALL LIGHT APPROPRIATELY. SHE DENIES ANY DIFFICULTY URINATING. SHE IS LYING IN BED WITH HER CALL LIGHT IN REACH. WILL REPORT TO DAY SHIFT RN.
[2020-06-19 05:54] LABS: Anion Gap 5 mmol/L (6-16); Blood Urea Nitrogen 10 mg/dL (8-24); Bun/Creatinine Ratio 16.6 (12.0-20.0); CO2, Blood 26 mmol/L (21-32); Calcium, Blood 7.7 mg/dL (8.5-10.1); Chloride, Blood 110 mmol/L (98-108); Glomerular Filtration Rate >60 (60-); Glucose, Blood 94 mg/dL (70-99); Magnesium, Blood 1.8 mg/dL (1.6-2.4); Potassium, Blood 3.1 mmol/L (3.5-5.5); Sodium, Blood 141 mmol/L (136-145)
--- NOTE | 2020-06-19 07:26 | NUR ---
ASSUMED CARE: PT RESTING QUIETLY AT THIS TIME. NO ACUTE NEEDS OR CONCERNS.
--- NOTE | 2020-06-19 07:51 | NUR ---
GANG VIBRATOR OPERATOR SENDING MESSAGE TO OBGYN TO UPDATE ABOUT HEAVY BLEEDING OVERNIGHT AND TO ASK ABOUT FURTHER PLANS/ORDERS
--- NOTE | 2020-06-19 08:30 | NUR ---
DR ALMODOVAR CAME TO SEE PT AND PERFORMED PELVIC EXAM WITH RN AT BEDSIDE. VISUALIZED LARGE CLOT IN CANAL THAT WAS REMOVED. ALSO SAW PT'S RECENT URINE WHICH APPEARED TO BE MOSTLY BLOOD AND CLOTS PASSED WITH THAT. DR INSTRUCTED RN TO MONITOR FOR FURTHER BLEEDING AND IF WORSENING TO LET DR KNOW. PACKAGING SPECIALIST ALSO AWARE
--- NOTE | 2020-06-19 13:47 | NUR ---
CARE COORDINATION REFERRAL - ADMIT: 06/18/20 DISCHARGE: DX: ALCOHOLIC ABUSE, ANEMIA, CHRONIC BLOOD LOSS CC: [email or web address] ADMIT: 03/15/18 DISCHARGE: 03/21/18 FEVER, LIVERFAILURE NOTED CPEABODY ADMIT: 2018: DISCHARGE: 02/27/18 ALCOHOLIC ENCEPHALOPATHY, PANCREATITIS NOTED: CPEABODY ADMIT: 05/17/17 DISCHARGE: 05/25/17- HOME - HOPFULLY TO [facility] FOR TREATMENT 05/26/17- [facility] TuesdayMay, 1:00 ADMIT TO [facility]. S/W ORALIA, POSITIVE OUTLOOK. МАРИНА CALL: 03/21/18 MET WITH ORALIA, CALL HOME TELEPHONE #, NO CELL PHONE AT THIS TIME. 02/27/18 CALL ORALIA ON HER CELL PHONE FOR МАРИНА 05/25/17 - MET WITH ORALIA, CALL HER ON HER CELL PHONE FOR МАРИНА. 02/14/18 DISCUSSED МАРИНА CALL WITH ORALIA, EXPECTS YOU TO ASK IF SHE CALLED HER COUNSELOR ABOUT INPATIENT REHAB. МАРИНА CALL: RESIDENCE: HOME, LIVES WITH MOM AND GRANDMA CAREGIVER: SELF DX: ALCOHOLIC INTOXICATION AND DEPENDENCE, ALCOHOLIC CIRRHOSIS AND INDUCED PANCRATITIS, BLOOD COAGULATION DISORDER. SEE LIST DME: NONE CCM: NONE HOME HEALTH: NONE
--- NOTE | 2020-06-19 14:14 | NUR ---
ASSISTED PT TO BSC. NOTED THAT URINE COLOR IS LIGHTENING TO A PINK COLOR BUT LARGE CLOTS STILL NOTED. PT STATES DIZZY WITH AMBULATION
--- NOTE | 2020-06-20 06:58 | NUR ---
ASSUMED CARE: PT RESTING QUIETLY IN BED AT THIS TIME. NO ACUTE NEEDS OR CONCERNS.
--- NOTE | 2020-06-20 07:25 | NUR ---
SHIFT SUMMARY PT RESTED WELL THIS MORNING. AAOX4/ANXIOUS AT TIMES. SMALL CLOTS WITH X1 MODERATE/LARGE SIZED CLOT NOTED THIS SHIFT. URINE PINK TINGED. GOOD PO INTAKE + OUTPUT. NO ACUTE CHANGES OVER NIGHT. PT CURRENTLY RESTING IN BED WITH CALL LIGHT IN REACH. REPORT TO DAY SHIFT RN.
[2020-06-20 09:53] LABS: Hematocrit 20.9 % (33.0-51.0); Hemoglobin 7.1 g/dL (11.5-16.0); Mean Corpuscular HGB 32.1 pg (26.0-34.0); Mean Corpuscular Volume 95 fL (80-100); Platelet Count 102 K/mm3 (150-400); RDW Coefficient Variation 18.7 % (11.7-14.2); RDW Standard Deviation 61.1 fL (35.1-46.3); Red Blood Cell Count 2.21 M/mm3 (3.80-5.20); White Blood Cell Count 3.09 K/mm3 (4.00-11.30)
[2020-06-20 10:16] LABS: Anion Gap 7 mmol/L (6-16); Blood Urea Nitrogen 8 mg/dL (8-24); Bun/Creatinine Ratio 14.1 (12.0-20.0); CO2, Blood 23 mmol/L (21-32); Calcium, Blood 7.7 mg/dL (8.5-10.1); Chloride, Blood 112 mmol/L (98-108); Creatinine, Blood 0.57 mg/dL (0.40-1.00); Glomerular Filtration Rate >60 (60-); Glucose, Blood 101 mg/dL (70-99); Potassium, Blood 3.5 mmol/L (3.5-5.5); Sodium, Blood 142 mmol/L (136-145)
--- NOTE | 2020-06-20 10:57 | NUR ---
REVIEWED PT'S LABS WITH DR MUÑOZ WHO STATES HE WANTS TO KEEP PT ONE MORE DAY TO TREND LABS FURTHER.
--- NOTE | 2020-06-20 18:24 | NUR ---
SHIFT SUMMARY: PT CONTINUES TO PASS BLOOD CLOTS BUT URINE IS BECOMING PINKER AND PT FEELS LESS LIQUID BLOOD IS OCCURRING. PLAN IS TO TREND H/H AND IF STAYS CONSISTENTLY ABOVE 7 THEN PT CAN DC WITH PLAN FOR FOLLOW UP FOR OUTPT IUD. MEDICATED FOR ANXIETY X1. DENIES FURTHER NEEDS OR CONCERNS.
--- NOTE | 2020-06-21 05:55 | NUR ---
SHIFT SUMMARY: PT HAS BEEN STABLE THIS SHIFT. A&O X4. VS WNL. PT REPORTS SATURATING 2-3 BRIEFS THIS SHIFT. REPORTS LESS BLOODY LIQUID OVER NIGHT, HOWEVER REPORTS APPROX SAME AMOUNT OF LARGE CLOTS. DENIES DIZZINESS. OUT OF BED TO BATHROOM INDEPENDENTLY. PLAN TO RECHECK H&H. POSS DISCHARGE HOME TODAY. PT WILL FOLLOW UP OUTPATIENT FOR IUD INSERTION.
--- NOTE | 2020-06-21 07:58 | NUR ---
A&OX3, DENIES ANY PAIN OR ANY DISCOMFORT AT THIS TIME, REPORTS CONTINUES TO HAVE VAGINAL BLEEDING "BUT NOT BAD" DENIES PASSING CLOTS, CONT. TO MONITOR FOR ANY CHANGES.
[2020-06-21 10:58] LABS: BASOPHILS PERCENT AUTO 0 % (0-2); EOSINOPHILS ABSOLUTE AUTO 0.13 K/mm3 (0.00-0.68); EOSINOPHILS PERCENT AUTO 5 % (0-6); Hematocrit 18.5 % (33.0-51.0); Hemoglobin 6.2 g/dL (11.5-16.0); IMMATURE GRAN PERCENT AUTO 0 % (0-1); LYMPHOCYTES ABSOLUTE AUTO 1.03 K/mm3 (0.84-5.20); LYMPHOCYTES PERCENT AUTO 39 % (21-46); MONOCYTES ABSOLUTE AUTO 0.24 K/mm3 (0.16-1.47); MONOCYTES PERCENT AUTO 9 % (4-13); Mean Corpuscular HGB 32.3 pg (26.0-34.0); Mean Corpuscular HGB Conc 33.5 g/dL (31.5-36.5); Mean Corpuscular Volume 96 fL (80-100); Mean Platelet Volume 9.5 fL (9.1-12.4); NEUTROPHILS ABSOLUTE AUTO 1.25 K/mm3 (1.96-9.15); NEUTROPHILS PERCENT AUTO 47 % (41-73); Platelet Count 86 K/mm3 (150-400); RDW Coefficient Variation 19.1 % (11.7-14.2); RDW Standard Deviation 61.7 fL (35.1-46.3); Red Blood Cell Count 1.92 M/mm3 (3.80-5.20); White Blood Cell Count 2.65 K/mm3 (4.00-11.30)
--- NOTE | 2020-06-21 14:57 | NUR ---
1ST UNIT PRBC STARTED, LUNGS CLEAR, DENIES ANY DISCOMFORT AT THIS TIME, PT STATES CONTINUES TO HAVE HEAVY VAGINAL BLEEDING WITH CLOTS, STATES SHE HAS BEEN CHANGING HER PAD Q3HRS, LAST PAD NOTED TO BE COMPLETELY SATURATED, NO CLOTS NOTED, STATES "THE CLOTS FALL IN THE TOILET" REPORTS HAVING SOME DIZZINESS EARLIER TODAY WHEN AMBULATING TO THE BATHROOM, INSTRUCTED TO CALL FOR ASSISTANCE WHEN GETTING UP IF CONT. TO FEEL DIZZY, CONT. TO MONITOR FOR ANY CHANGES.
--- NOTE | 2020-06-21 17:56 | NUR ---
1ST UNIT PRBC FINISHED, LUNGS CLEAR, VSS, DENIES ANY DISCOMFORT, EATING DINNER, TOLERATING WELL, STATES SHE HASN'T CHANGED HER PAD YET, DENIED ANY DISCOMFORT THIS SHIFT, AMBULATING TO THE BATHROOM, DENIES ANY DIZZINESS RECENTLY, NO ACUTE CHANGES THIS SHIFT.
--- NOTE | 2020-06-21 21:34 | NUR ---
PRBC COMPLETED, PT ED WELL.
--- NOTE | 2020-06-22 00:10 | NUR ---
PT IS WEARING PULLUP BRIEFS INSTEAD OF JANETH PADS. PT HAS CHANGED BREIF X2 SO FAR THIS SHIFT. BRIEFS ARE SATURATED, PT HAS PASSED 4 LARGE CLOTS (APPX SIZE OF 50 CENT PIECE).
--- NOTE | 2020-06-22 04:40 | NUR ---
PT VSS T/O NIGHT. PT CONT TO HAVE HEAVY VAGINAL BLEEDING; SATURATING 3 PULLUP BRIEFS THIS SHIFT. PT CONT TO PASS SEVERAL LARGE CLOTS, CLOTS APPX 3-4CM IN DIAMETER. PT DENIED ABD CRAMPING. PT DID REPORT MILD DIZZIENSS WHEN UP EARLY THIS AM, SBA BACK TO BED. PT ED PO, NO N/V. PT USING CALL LIGHT FOR ASSISTANCE, ENC TO CALL IF SHE FEELS DIZZY.
[2020-06-22 11:23] LABS: BASOPHILS ABSOLUTE AUTO 0.02 K/mm3 (0.00-0.23); BASOPHILS PERCENT AUTO 1 % (0-2); EOSINOPHILS ABSOLUTE AUTO 0.14 K/mm3 (0.00-0.68); EOSINOPHILS PERCENT AUTO 4 % (0-6); Hematocrit 23.3 % (33.0-51.0); IMMATURE GRAN ABSOLUTE AUTO 0.02 K/mm3 (0.00-0.10); IMMATURE GRAN PERCENT AUTO 1 % (0-1); LYMPHOCYTES PERCENT AUTO 28 % (21-46); MONOCYTES ABSOLUTE AUTO 0.27 K/mm3 (0.16-1.47); MONOCYTES PERCENT AUTO 8 % (4-13); Mean Corpuscular HGB 31.1 pg (26.0-34.0); Mean Corpuscular HGB Conc 34.3 g/dL (31.5-36.5); Mean Platelet Volume 9.4 fL (9.1-12.4); NEUTROPHILS ABSOLUTE AUTO 2.09 K/mm3 (1.96-9.15); NEUTROPHILS PERCENT AUTO 59 % (41-73); NRBC ABSOLUTE 0.02 K/mm3 (0.00-0.02); NRBC Auto 0.6 /100 WBC (0.0-0.2); Platelet Count 95 K/mm3 (150-400); RDW Coefficient Variation 22.5 % (11.7-14.2); RDW Standard Deviation 68.1 fL (35.1-46.3); Red Blood Cell Count 2.57 M/mm3 (3.80-5.20); White Blood Cell Count 3.54 K/mm3 (4.00-11.30)
[2020-06-22 11:38] LABS: Mean Corpuscular Volume 91 fL (80-100)
[2020-06-22 11:39] LABS: Anion Gap 8 mmol/L (6-16); Blood Urea Nitrogen 8 mg/dL (8-24); Bun/Creatinine Ratio 12.3 (12.0-20.0); CO2, Blood 23 mmol/L (21-32); Chloride, Blood 111 mmol/L (98-108); Creatinine, Blood 0.65 mg/dL (0.40-1.00); Glomerular Filtration Rate >60 (60-); Glucose, Blood 99 mg/dL (70-99); Potassium, Blood 3.1 mmol/L (3.5-5.5); Sodium, Blood 142 mmol/L (136-145)
[2020-06-22] MEDS ORDERED: FOLI1 PO (14:32)
[2020-06-22] MEDS ORDERED: GABA100 PO (14:35)
[2020-06-22] MEDS ORDERED: Seroquel Xr50 MG PO (14:36)
[2020-06-22] MEDS ORDERED: MEGESTROL ACETA20 M1 PO (14:36)
[2020-06-22] MEDS ORDERED: B-1100 M1 PO (14:37)
--- NOTE | 2020-06-22 15:39 | NUR ---
DC'D HOME, DC INSTRUCTIONS GIVEN, VERBALIZED UNDERSTANDING, IV DC'D, CATH INTACT.
--- NOTE | 2020-06-23 18:45 | NUR ---
SUMMARY: Admit: 06/18/20 06/22/20 Discharge home, She will need to follow-up with PCP within 1 week and with [facility] sometime this week for placement of IUD Per Dr Holbrook discharge summary. cp 06/20/20- per chart review with Dr. Holbrook, pt could potentially be discharged over the weekend. Dr. Yennifer Pierce saw pt in the hospital and will plan to put an IUD in the pt post hospital stay. 1: Abnormal uterine bleeding A/P: Patient had been experiencing abnormal bleeding during her current menstrual cycle, having to change multiple pads per day. Likely exacerbated by thrombocytopenia, decrease intensity of clotting factors, secondary to hepatic cirrhosis
== END 2020-06-22 15:33 | disposition home or self-care (01) | DRG 760 ==
LOC: SURS 12:04
PROVIDERS: Obstetrics & Gynecology; ADMIT Internal Medicine
PROC: 30233N1 Transfusion of Nonautologous Red Blood Cells into Peripheral Vein, Percutaneous Approach (ICD-10-PCS; principal; 2020-06-18)
DX: N93.9 Abnormal uterine and vaginal bleeding, unspecified (principal); D62 Acute posthemorrhagic anemia; K76.6 Portal hypertension; K70.30 Alcoholic cirrhosis of liver without ascites; F10.10 Alcohol abuse, uncomplicated; T18.4XXA Foreign body in colon, initial encounter; D69.59 Other secondary thrombocytopenia; G62.9 Polyneuropathy, unspecified; F41.8 Other specified anxiety disorders; F12.90 Cannabis use, unspecified, uncomplicated; Z79.899 Other long term (current) drug therapy; Z71.41 Alcohol abuse counseling and surveillance of alcoholic; X58.XXXA Exposure to other specified factors, initial encounter
CPT/HCPCS: 36415; 36430; 74177; 76830; 76856; 80048; 80053; 80076; 82330; 82728; 83540; 83550; 83735; 85025; 85027; 85384; 85610; 86850; 86900; 86901; 86923; A9270; J3475; J7040; J7050; P9016; Q9967

== ENCOUNTER → 2020-08-22 | Outpatient (CLI) | payer OTHER ==
[~2020-08-22] MED LIST changes: +B-1100 M1 PO; +GABA100 PO; +MEGESTROL ACETA20 M1 PO; +Seroquel Xr50 MG PO
== END ==
LOC: EDSTATUS 09:24 → LAB 13:23 → LAB SHORT 13:23
DX: R30.0 Dysuria (principal)
CPT/HCPCS: 87077; 87086; 87186

== ENCOUNTER → 2021-01-07 | Outpatient (CLI) | payer OTHER | END | disposition home or self-care (01) | LOC: LAB SHORT 15:20 | DX: T14.8XXA Other injury of unspecified body region, initial encounter (principal) | CPT/HCPCS: 87070; 87075; 87077; 87147; 87186; 87205 ==

== ENCOUNTER 2021-02-21 19:42 | Inpatient (IN) | payer OTHER ==
[~2021-02-21] VITALS: Ht 167.6 cm; Wt 63.8 kg
[2021-02-21 20:08] LABS: BASOPHILS ABSOLUTE AUTO 0.03 K/mm3 (0.00-0.23); BASOPHILS PERCENT AUTO 0 % (0-2); EOSINOPHILS ABSOLUTE AUTO 0.02 K/mm3 (0.00-0.68); EOSINOPHILS PERCENT AUTO 0 % (0-6); Hematocrit 33.1 % (33.0-51.0); Hemoglobin 10.9 g/dL (11.5-16.0); IMMATURE GRAN ABSOLUTE AUTO 0.04 K/mm3 (0.00-0.10); IMMATURE GRAN PERCENT AUTO 0 % (0-1); LYMPHOCYTES ABSOLUTE AUTO 0.72 K/mm3 (0.84-5.20); LYMPHOCYTES PERCENT AUTO 7 % (21-46); MONOCYTES ABSOLUTE AUTO 0.39 K/mm3 (0.16-1.47); MONOCYTES PERCENT AUTO 4 % (4-13); Mean Corpuscular HGB 35.5 pg (26.0-34.0); Mean Corpuscular HGB Conc 32.9 g/dL (31.5-36.5); Mean Corpuscular Volume 108 fL (80-100); Mean Platelet Volume 8.8 fL (9.1-12.4); NEUTROPHILS ABSOLUTE AUTO 9.53 K/mm3 (1.96-9.15); NEUTROPHILS PERCENT AUTO 89 % (41-73); Platelet Count 188 K/mm3 (150-400); RDW Coefficient Variation 16.9 % (11.7-14.2); RDW Standard Deviation 65.7 fL (35.1-46.3); Red Blood Cell Count 3.07 M/mm3 (3.80-5.20); White Blood Cell Count 10.73 K/mm3 (4.00-11.30)
[2021-02-21 20:31] LABS: Alanine Aminotransfer (ALT/SGP 210 U/L (12-78); Albumin, Blood 3.6 g/dL (3.4-5.0); Albumin/Globulin Ratio 0.7 (0.8-1.8); Alk Phos 173 U/L (50-136); Anion Gap 27 mmol/L (6-16); Bilirubin, Total 4.8 mg/dL (0.1-1.0); Blood Urea Nitrogen 35 mg/dL (8-24); Bun/Creatinine Ratio 23.2 (12.0-20.0); CO2, Blood 15 mmol/L (21-32); Chloride, Blood 97 mmol/L (98-108); Creatinine, Blood 1.51 mg/dL (0.40-1.00); Ethanol (Alcohol), Blood, Med <3 mg/dL; Globulin, Blood 4.9 g/dL (2.2-4.0); Glomerular Filtration Rate 38 (60-); Glucose, Blood 84 mg/dL (70-99); Potassium, Blood 3.6 mmol/L (3.5-5.5); Sodium, Blood 139 mmol/L (136-145); Total Protein, Blood 8.5 g/dL (6.4-8.2)
[2021-02-21 21:12] LABS: Aspartate Aminotrans (AST/SGOT 1052 U/L (12-37)
[2021-02-21 21:17] LABS: Acetaminophen, Random <2.0 ug/mL (10.0-30.0)
[2021-02-21 21:18] LABS: Salicylate <1.7 mg/dL (2.8-20.0)
[2021-02-21 21:28] LABS: Base Excess Venous -13.5 mmol/L; Bicarbonate Venous 14.8 mmol/L (24.0-30.0); PCO2 Venous 29.7 mmHg (38-42); PO2 Venous 76.3 mmHg (38-42); pH Blood Venous 7.27 (7.34-7.37)
[2021-02-21 21:53] LABS: U Amphetamine Screen Not Detected; U Barbituate Screen Not Detected; U Benzodiazapine Screen Not Detected; U Buprenorphine Screen Not Detected; U Cannabinoids Screen Not Detected; U Cocaine Screen Not Detected; U Methadone Screen Not Detected; U Methamphetamine Screen Not Detected; U Opiates Screen Not Detected; U Oxycodone Screen Not Detected; U Phencyclidine Screen Not Detected; U Propoxyphene Screen Not Detected
[2021-02-21 22:30] LABS: Influenza A, PCR NEGATIVE (NEGATIVE); Influenza B, PCR NEGATIVE (NEGATIVE); Resp Syncytial Virus, PCR NEGATIVE (NEGATIVE); SARS-Cov-2 (COVID-19) PCR, MMC NEGATIVE (NEGATIVE)
[2021-02-21 22:34] LABS: Source, Urine Catheter
[2021-02-21 22:36] LABS: Bilirubin, Urine Neg (Neg); Blood, Urine 5+ (Neg); Glucose Qualitative, Urine Neg (Neg); Ketones, Urine 4+ (Neg); Leukocyte Esterase, Urine 1+ (Neg); Nitrite, Urine Neg (Neg); Protein, Urine 3+ (Neg); Specific Gravity, Urine 1.015 (1.003-1.022); Urobilinogen, Urine 1+ (Normal)
[2021-02-21 22:48] LABS: Appearance, Urine Hazy (Clear); Color, Urine Amber (P-Yellow)
[2021-02-21 22:52] LABS: Amorphous Mod (0-Heavy); Bacteria Rare /hpf; Mucus Light (0-Heavy); Red Blood Cells, Urine 0-2 /hpf (0-2); Squamous Epithelial Cells Rare /hpf (Few)
[2021-02-21 23:17] LABS: Bun/Creatinine Ratio 24.8 (12.0-20.0); Calcium, Blood 8.5 mg/dL (8.5-10.1); Creatinine, Blood 1.49 mg/dL (0.40-1.00); Potassium, Blood 2.8 mmol/L (3.5-5.5)
[2021-02-21 23:23] LABS: Beta-hydroxybutyrate 96.4 mg/dL (0.2-2.8)
[2021-02-22 00:36] LABS: International Normalized Ratio 1.48; Prothrombin Time Results 15.1 Sec (9.7-11.5)
[2021-02-22 03:30] LABS: BASOPHILS ABSOLUTE AUTO 0.02 K/mm3 (0.00-0.23); BASOPHILS PERCENT AUTO 0 % (0-2); EOSINOPHILS PERCENT AUTO 0 % (0-6); Hemoglobin 10.3 g/dL (11.5-16.0); IMMATURE GRAN ABSOLUTE AUTO 0.07 K/mm3 (0.00-0.10); IMMATURE GRAN PERCENT AUTO 1 % (0-1); LYMPHOCYTES ABSOLUTE AUTO 0.86 K/mm3 (0.84-5.20); LYMPHOCYTES PERCENT AUTO 7 % (21-46); MONOCYTES ABSOLUTE AUTO 0.91 K/mm3 (0.16-1.47); MONOCYTES PERCENT AUTO 8 % (4-13); Mean Corpuscular HGB Conc 33.2 g/dL (31.5-36.5); Mean Corpuscular Volume 108 fL (80-100); Mean Platelet Volume 8.7 fL (9.1-12.4); NEUTROPHILS ABSOLUTE AUTO 10.34 K/mm3 (1.96-9.15); NEUTROPHILS PERCENT AUTO 85 % (41-73); Platelet Count 237 K/mm3 (150-400); RDW Coefficient Variation 17.2 % (11.7-14.2); RDW Standard Deviation 65.1 fL (35.1-46.3); Red Blood Cell Count 2.86 M/mm3 (3.80-5.20)
[2021-02-22 04:04] LABS: Albumin, Blood 2.9 g/dL (3.4-5.0); Albumin/Globulin Ratio 0.6 (0.8-1.8); Bilirubin, Total 3.9 mg/dL (0.1-1.0); Calcium, Blood 8.1 mg/dL (8.5-10.1); Creatinine, Blood 1.52 mg/dL (0.40-1.00); Globulin, Blood 4.5 g/dL (2.2-4.0); Potassium, Blood 2.6 mmol/L (3.5-5.5); Total Protein, Blood 7.4 g/dL (6.4-8.2)
[2021-02-22 11:33] LABS: Source, Urine Catheter
[2021-02-22 11:39] LABS: Appearance, Urine Clear (Clear); Bilirubin, Urine Neg (Neg); Blood, Urine 5+ (Neg); Color, Urine Yellow (P-Yellow); Glucose Qualitative, Urine Neg (Neg); Ketones, Urine 3+ (Neg); Leukocyte Esterase, Urine Neg (Neg); Nitrite, Urine Neg (Neg); Protein, Urine 3+ (Neg); Urobilinogen, Urine NORM (Normal)
[2021-02-22 12:04] LABS: White Blood Cells, Urine 0-2 /hpf (0-5)
[2021-02-22 12:05] LABS: Bacteria Rare /hpf; Squamous Epithelial Cells Rare /hpf (Few)
[2021-02-22 13:28] LABS: Bun/Creatinine Ratio 23.1 (12.0-20.0); Calcium, Blood 8.1 mg/dL (8.5-10.1); Creatinine, Blood 1.6 mg/dL (0.40-1.00); Potassium, Blood 2.9 mmol/L (3.5-5.5)
--- NOTE | 2021-02-22 20:00 | NUR ---
ASSUMED CARE OF PT AT 1930, REPORT RECEIVED FROM LORAINE OLIVER. PT RESTLESS IN BED, MOVING HEAD SIDE TO SIDE. NOT FOLLOWING COMMANDS OR DOING ANY PURPOSEFUL MOVEMENT, WITHDRAWS FROM PAINFUL STIMULI. PUPILS EQUAL AND REACTIVE, PULSES PALPABLE IN ALL EXTREMITIES, CAP REFILL WNL. HR 120'S, SBP 120'S, SPO2 96% ON 4L NC. LUNGS CLEAR WITH DIM BASES, ACTIVE BOWEL TONES. VALVERDE AND RECTAL TUBE PATENT AND DRAINING TO GRAVITY. NS TKO INFUSING.
--- NOTE | 2021-02-22 20:57 | NUR ---
DR BURTON NOTIFIED OF POSITIVE BLOOD CULTURES. PT CURRENTLY RECEIVING ROCHEPHIN, NO NEW ORDERS PLACED AT THIS TIME.
--- NOTE | 2021-02-22 22:33 | NUR ---
UPDATE DR BURTON NOTIFIED OF PT'S BS OF 67. NEW ORDER PLACED FOR AMP OF D50, BS CHECKS Q6H. PER DR BURTON, WILL RE-EVALUATE IN AM TO DETERMINE HYDRATION NEEDS.
[2021-02-23 03:33] LABS: BASOPHILS ABSOLUTE AUTO 0.02 K/mm3 (0.00-0.23); BASOPHILS PERCENT AUTO 0 % (0-2); Hematocrit 32.2 % (33.0-51.0); Hemoglobin 10.6 g/dL (11.5-16.0); LYMPHOCYTES ABSOLUTE AUTO 0.39 K/mm3 (0.84-5.20); LYMPHOCYTES PERCENT AUTO 4 % (21-46); MONOCYTES ABSOLUTE AUTO 0.62 K/mm3 (0.16-1.47); MONOCYTES PERCENT AUTO 6 % (4-13); Mean Corpuscular HGB 35.7 pg (26.0-34.0); Mean Corpuscular HGB Conc 32.9 g/dL (31.5-36.5); Mean Corpuscular Volume 108 fL (80-100); Mean Platelet Volume 9.3 fL (9.1-12.4); Platelet Count 137 K/mm3 (150-400); RDW Coefficient Variation 18.6 % (11.7-14.2); RDW Standard Deviation 71.2 fL (35.1-46.3); Red Blood Cell Count 2.97 M/mm3 (3.80-5.20); White Blood Cell Count 9.68 K/mm3 (4.00-11.30)
[2021-02-23 03:34] LABS: EOSINOPHILS PERCENT AUTO 0 % (0-6); IMMATURE GRAN ABSOLUTE AUTO 0.05 K/mm3 (0.00-0.10); IMMATURE GRAN PERCENT AUTO 1 % (0-1); NEUTROPHILS PERCENT AUTO 89 % (41-73)
[2021-02-23 03:54] LABS: Bun/Creatinine Ratio 23.1 (12.0-20.0); Calcium, Blood 8.6 mg/dL (8.5-10.1); Creatinine, Blood 1.86 mg/dL (0.40-1.00); Magnesium, Blood 2.1 mg/dL (1.6-2.4); Potassium, Blood 3.5 mmol/L (3.5-5.5)
--- NOTE | 2021-02-23 05:45 | NUR ---
UPDATE DR HERZOG NOTIFIED OF PT'S BS OF 67, NA OF 153, AND CO2 17. NEW ORDERS PLACED FOR 1/2 AMP OF D50 AND D5W AT 75 ML/HR.
--- NOTE | 2021-02-23 06:37 | NUR ---
SHIFT SUMMARY PT CONTINUES MOVING HEAD SIDE TO SIDE AND BUE, STILL NOT OPENING EYES OR FOLLOWING COMMANDS. NO PURPOSEFUL MOVEMENT NOTED THIS SHIFT. HR 115-120'S, SBP 90-115'S. LUNGS CLEAR WITH DIM BASES. PT'S MOUTH/LIPS CONTINUE TO BE BLOODY, ORAL CARE DONE. 4L NC TO KEEP SPO2 >90%, SPO2 DIPS TO 80'S WHEN NC REMOVED. VALVERDE DRAINING DARK YELLOW URINE TO GRAVITY. RECTAL TUBE IN PLACE, LACTULOSE ENEMA X2 GIVEN THIS SHIFT. NS TKO AND D5W @ 75 ML/HR INFUSING.
[2021-02-23 07:52] LABS: Albumin, Blood 2.8 g/dL (3.4-5.0); Albumin/Globulin Ratio 0.6 (0.8-1.8); Bilirubin, Direct 2.6 mg/dL (0.0-0.3); Bilirubin, Total 3.6 mg/dL (0.1-1.0); Globulin, Blood 4.8 g/dL (2.2-4.0); Total Protein, Blood 7.6 g/dL (6.4-8.2)
--- NOTE | 2021-02-23 21:46 | NUR ---
ASSUMED CARE OF PT AT 1900, REPORT RECEIVED FROM LORAINE OLIVER. PT CONTINUES TO NOT FOLLOW COMMANDS, NOT OPENING EYES, DOES WITHDRAW FROM PAINFUL STIMULI BUT NO PURPOSEFUL MOVEMENT NOTED. LUNGS CLEAR WITH DIM BASES, 6L NC TO MAINTAIN SPO2 >90%. HR 115-120'S, SBP 130'S. PUPILS EQUAL AND SLUGGISH. VALVERDE AND RECTAL TUBE PATENT AND DRAINING TO GRAVITY. NS TKO AND D5W AT 75 ML/HR INFUSING.
[2021-02-24 03:42] LABS: Hematocrit 34.6 % (33.0-51.0); Hemoglobin 11.4 g/dL (11.5-16.0); Mean Corpuscular HGB 35.5 pg (26.0-34.0); Mean Corpuscular HGB Conc 32.9 g/dL (31.5-36.5); Mean Corpuscular Volume 108 fL (80-100); Mean Platelet Volume 9.5 fL (9.1-12.4); Platelet Count 108 K/mm3 (150-400); RDW Coefficient Variation 19.2 % (11.7-14.2); RDW Standard Deviation 73.2 fL (35.1-46.3); Red Blood Cell Count 3.21 M/mm3 (3.80-5.20)
[2021-02-24 04:00] LABS: Albumin, Blood 2.8 g/dL (3.4-5.0); Albumin/Globulin Ratio 0.6 (0.8-1.8); Bilirubin, Total 3.9 mg/dL (0.1-1.0); Bun/Creatinine Ratio 26.2 (12.0-20.0); Calcium, Blood 8.6 mg/dL (8.5-10.1); Creatinine, Blood 1.83 mg/dL (0.40-1.00); Globulin, Blood 4.9 g/dL (2.2-4.0); Total Protein, Blood 7.7 g/dL (6.4-8.2)
[2021-02-24 04:06] LABS: BAND PERCENT MAN 20 % (0-8); BASOPHILS PERCENT MAN 0 % (0-2); EOSINOPHILS PERCENT MAN 0 % (0-6); LYMPHOCYTES ABSOLUTE MAN 0.42 K/mm3 (0.84-5.20); LYMPHOCYTES PERCENT MAN 5 % (21-46); METAMYELOCYTE ABSOLUTE MAN 0.08 K/mm3 (0.00-0.00); METAMYELOCYTE PERCENT MAN 1 % (0-0); MONOCYTES ABSOLUTE MAN 0.25 K/mm3 (0.16-1.47); MONOCYTES PERCENT MAN 3 % (4-13); NEUTROPHILS ABSOLUTE MAN 7.73 K/mm3 (1.96-9.15); SEG NEUTROPHILS PERCENT MAN 71 % (41-73); TOTAL CELLS COUNTED 100
--- NOTE | 2021-02-24 06:37 | NUR ---
SHIFT SUMMARY PT CONTINUES TO NOT OPEN EYES OR FOLLOW COMMANDS, REMAINS NONVERBAL, DOES MOVE ALL EXTREMITIES. HR 100-115'S, SBP 115-130'S. PT ON 6L NC TO MAINTAIN SPO2 >90%. LUNGS CLEAR WITH DIM BASES. MOUTH BLOODY, ORAL CARE ATTEMPTED. RECTAL TUBE PATENT AND DRAINING TO GRAVITY, VALVERDE DRAINING TAMIA URINE TO GRAVITY. PT CURRENTLY INFUSING NS TKO AND 20 MEQ KCL.
--- NOTE | 2021-02-24 08:10 | NUR ---
ASSUMED PT CARE THIS AM. PT DOES NOT OPEN EYES OR FOLLOW ANY SIMPLE COMMANDS. PUPPILS SIZE 5 BILAT, SLUGGISH, NO BLINK TO THREAT, NO TRACKING. PT HAS SPONTANEOUS, NON PURPOSEFUL MOVEMENT TO ALL EXTREMTIES, WITHDRAWS TO NOX STIM TO ALL EXTREMITIES. HR ST. PT TACHYPNEIC IN 30S. LUNGS CLEAR/DIM. FC AND RECTAL TUBE IN PLACE, PATENT AND DRAINING. DISCUSSING WITH HYPERNATREMIA AND POC.
--- NOTE | 2021-02-24 14:12 | NUR ---
MD MUÑOZ CALLED UPDATED ON PT STATUS. PT'S MOM AT BEDSIDE, UPDATED ON POC. INFORMED PT'S MOM WOULD LIKE UPDATE, STATES HE WILL BE BY IN 30 MIN.
--- NOTE | 2021-02-24 14:59 | NUR ---
SPOKE WITH MD MUÑOZ WHO HAS SPOKEN WITH PT'S MOM. PER DR MUÑOZ PT IS DNR, DO NOT ESCALATE CARE, WILL RE-EVAL NEED FOR CT OF HEAD IN AM.
--- NOTE | 2021-02-24 18:03 | NUR ---
SHIFT SUMMARY PT DOES NOT OPEN EYES, NO BLINK TO THREAT, EYES INTERMITTENTLY DYSCONJUGATE, PERRLA 5, SLUGGISH. NOT FOLLOWING COMMAND. SPONTANEOUS MOVEMENT TO ALL EXTREMITIES, NO PURPOSEFUL MOVEMENT, WITHDRAWS TO NOX STIM IN ALL EXTREMITY. ST 110-120 THROUGHOUT SHIFT, NORMOTENSIVE. T MAX 99.5, COOLING MEASURES UTILIZED. PT TACHYPNEIC THROUGHOUT SHIFT. LUNGS DIM. PT SWITCHED TO 12L MASK TO MAINTAIN SAT 90% AND GREATER SECONDARY TO MOUTH BREATHING. RT NOTIFIED. REPEAT k AND AMMONIA LEVEL. K BEING REPLACED. LACTULOSE HELD. PER MD, AFTER SPEAKING WITH PT'S MOM, PT IS DNR. NO PLAN FOR REPEAT CT OF HEAD TODAY. WILL RE-EVAL IN AM.
--- NOTE | 2021-02-24 21:34 | NUR ---
UPDATE PT'S SPO2 DROPPED TO 86%, PLACED ON 15L NONREBREATHER. LUNGS COARSE/DIMINISHED. DR BOLTON NOTIFIED, NEW ORDERS PLACED FOR NT SUCTION AND CPAP/BIPAP. RT AT BEDSIDE, SUCTIONED MODERATE AMOUNT OF BLOODY SECRETIONS, SPO2 INCREASED TO 91%. WILL CONTINUE TO MONITOR AND NT SUCTION NEEDED. CONTINUES ON 15L NONREBREATHER.
[2021-02-25 03:57] LABS: Hematocrit 33.3 % (33.0-51.0); Hemoglobin 10.9 g/dL (11.5-16.0); Mean Corpuscular HGB 35.4 pg (26.0-34.0); Mean Corpuscular HGB Conc 32.7 g/dL (31.5-36.5); Mean Corpuscular Volume 108 fL (80-100); Mean Platelet Volume 9.5 fL (9.1-12.4); RDW Coefficient Variation 19.6 % (11.7-14.2); Red Blood Cell Count 3.08 M/mm3 (3.80-5.20)
[2021-02-25 04:08] LABS: Platelet Count 50 K/mm3 (150-400)
[2021-02-25 04:09] LABS: Albumin, Blood 2.4 g/dL (3.4-5.0); Anion Gap 6 mmol/L (6-16); Blood Urea Nitrogen 40 mg/dL (8-24); Bun/Creatinine Ratio 30.5 (12.0-20.0); CO2, Blood 27 mmol/L (21-32); Calcium, Blood 8.2 mg/dL (8.5-10.1); Chloride, Blood 121 mmol/L (98-108); Creatinine, Blood 1.31 mg/dL (0.40-1.00); Glomerular Filtration Rate 45 (60-); Glucose, Blood 191 mg/dL (70-99); Phosphorus, Blood 1.4 mg/dL (2.5-4.9); Sodium, Blood 154 mmol/L (136-145)
[2021-02-25 04:48] LABS: BAND PERCENT MAN 16 % (0-8); BASOPHILS PERCENT MAN 0 % (0-2); EOSINOPHILS PERCENT MAN 0 % (0-6); LYMPHOCYTES PERCENT MAN 5 % (21-46); METAMYELOCYTE ABSOLUTE MAN 0.04 K/mm3 (0.00-0.00); METAMYELOCYTE PERCENT MAN 1 % (0-0); MONOCYTES ABSOLUTE MAN 0.28 K/mm3 (0.16-1.47); MONOCYTES PERCENT MAN 7 % (4-13); NEUTROPHILS ABSOLUTE MAN 3.56 K/mm3 (1.96-9.15); SEG NEUTROPHILS PERCENT MAN 71 % (41-73); TOTAL CELLS COUNTED 100
--- NOTE | 2021-02-25 06:15 | NUR ---
SHIFT SUMMARY PT WITH SPONTANEOUS MOVEMENT OF BUE, NOT FOLLOWING COMMANDS OR VERBALIZING. RANDOMLY MOVING HEAD SIDE TO SIDE. PUPILS EQUAL, 5MM, DISCONJUGATE AT TIMES. PT WITHDRAWS FROM PAINFUL STIMULI. ARMS INTERMITTENTLY CONTRACTED. BOWEL TONES HYPOACTIVE. VALVERDE DRAINING TAMIA URINE TO GRAVITY. RECTAL TUBE IN PLACE, DRAINING LIQUID GREEN STOOL TO GRAVITY. HR 100-115'S, SBP 130-150'S. PT NT SUCTIONED ONCE THIS SHIFT BY RT. LUNGS CLEAR WITH DIM BASES. CURRENTLY ON 15L NON-REBREATHER TO MAINTAIN SPO2 >90%.
--- NOTE | 2021-02-25 08:00 | NUR ---
ASSUMED CARE RECEIVED REPORT FROM MELODY BURGOS AT 0700. PT A&O X0, UNABLE TO OPEN EYES OR FOLLOW ANY COMMANDS. NO PURPOSEFUL MOVEMENTS, BUT DOES TURN HEAD FROM SIDE TO SIDE AND WITHDRAWS ARMS TOWARDS CHIN. MOANS WITH REPOSITIONING AND VERY STIFF. AFEBRILE. ON 15L VIA NON REBREATHER, SPO2 95%. LUNGS CLEAR AND DIMINISHED T/O. HR SINUS TACH IN 110'S, SBP 140'S. RECTAL TUBE WAS OUT WHEN PT REPOSITIONED, DID NOT REPLACE THERE WAS NO OUTPUT IN TUBE/BAG. VALVERDE DRAINING TO GRAVITY, TAMIA/YELLOW URINE. SHE HAS MULTIPLE LARGE BRUISES T/O, SPECIFICALLY TO LEFT HAND AND LEFT HIP. ORDERS REVIEWED AND WILL TREAT PRESCRIBED.
--- NOTE | 2021-02-25 10:35 | NUR ---
PT'S FATHER, BAMBI, CALLED AND UPDATED.
--- NOTE | 2021-02-25 11:23 | NUR ---
DR. MUÑOZ AT BEDSIDE. NEW ORDERS GIVEN FOR HEAD CT AND TO TRY ATIVAN 2MG IV X1 FOR SEDATION/MOVEMENT FIRST. IF UNSUCCESSFUL, MAY TRY PRECEDEX GTT.
--- NOTE | 2021-02-25 16:22 | NUR ---
Spiritual care visit conducted. Patient's father, Kenneth, talks at length about his life history, his understanding of patient's condition and the medical decisions he should be making and about his thoughts about PTSD (Kenneth is a [place] vet). Patient also talks about his Mormon krish and how it has change his life at the moment of his conversion a few years ago. I normalize his experience and provide therapeutic listening, a calming presence, gentle dormitory counselor and prayer. Kenneth responds well and shows signs of being comforted and encouraged. I will continue to assist him and the family with emotional/spiritual support.
--- NOTE | 2021-02-25 17:48 | NUR ---
Multiple visits today to assess pt and to discuss care with pt. Pt very deconditioned has many multiple stage bruises. oral truama noted, she is lacking most of her dentition and has bleeding gums. She has multistage bruising to her face head extremities and hands. She look to have some foot drop. Review with father that she was staying sith him and joined his sabianist and seemed ETOH free. 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 He stated noicing some behavious that incicated she might be drinking. Her father relayed that he spoke with the physician and understands she may be terminal. He spoke with her mother and silblings and family about prognosis. He asked about when they should have to pull the plug. had chaplian visit with him and give him support. Diacussed with him that we are not doing extrodianry care and reviewed diagnositics and labs in a non clinical way. advised that if she doean ot wake up or declines further and suffering increases with need to transition to hospice. He expressed underatanding and discussed with pt mother that they know this is coming sooner or later. While we were talking pt was swinging head back and forth and moaning loudly. Review of symptoms and prognosis with nursing. pt kps score is 20%. Advised we will review am diagnositice sand see how she is trending to help family with decision. will help from chaplian will try to help them with not feeling they are puling the plug. Will contiue to monitor symptoms
--- NOTE | 2021-02-25 18:18 | NUR ---
PT REMAINS A&O X0 T/O SHIFT, TURNING HEAD SIDE TO SIDE FREQUENTLY AND MOANING, BUT UNABLE TO OPEN EYES AND CONTINUES TO WITHDRAW ARMS TOWARDS CHIN. HEAD CT CANCELLED PT IS UNABLE TO REMAIN STILL, DESPITE ATIVAN GIVEN. DISCUSSED POSSIBLE PRECEDEX GTT WITH DR. MUÑOZ, PT'S FATHER, AND PALLIATIVE CARE, AND DECIDED AGAINST HEAD CT AT THIS TIME, MAY RECONSIDER IN THE FUTURE. 15L HIGH FLOW 02 REMAINED ON T/O ENTIRE SHIFT, SPO2 86-93%, DESATS FREQUENTLY TO 80'S, SLOW TO RECOVER. LUNGS REMAIN CLEAR AND DIM. HR SINUS TACH, RATE 100-110'S. BP STABLE. DOBHOFF PLACED IN RIGHT NARE TO 68CM, AWAITING XRAY FOR CONFIRMATION. VALVERDE REMAINS PATENT DRAINING TO GRAVITY. LOW GRADE TEMP CONTINUES, TMAX OF 100.1. HER MOUTH CONTINUES TO BE BLOODY, BITES DOWN WITH ORAL CARE AND DESATS QUICKLY. WILL REPORT TO ONCOMING SHIFT.
--- NOTE | 2021-02-25 19:12 | NUR ---
X-RAY UNABLE TO BE DONE STAT THEY ARE NEEDING NEGATIVE TEST, AND NONE ON FILE. CALL TO DR. MUÑOZ AND TEST ORDERED. WILL CALL X-RAY WHEN RESULTS ARE OBTAINED.
--- NOTE | 2021-02-25 20:50 | NUR ---
ASSUMED CARE REPORT RECEIVED FROM DAY SHIFT RN. PT IN BED, DOES NOT FOLLOW COMMANDS, HAS NON PURPOSEFUL MOVEMENT. DOES NOT RESPOND TO NAME. PT IS ST ON MONIOR, HR 110S. PT ON NON-BREATHER MASK AT 15L, O2 SATURATIONS HAVE BEEN IN HIGH 80S-90%. DOBHOFF PLACED BY PREVIOUS SHIFT, AWAITING XR VERIFICATION PLACEMENT. WILL CONTINUE TO MONITOR. SAFETY MEASURES IN PLACE. SEE SHIFT ASSESSMENT.
[2021-02-26 03:29] LABS: Hematocrit 31.3 % (33.0-51.0); Hemoglobin 10.3 g/dL (11.5-16.0); LYMPHOCYTES ABSOLUTE AUTO 1.08 K/mm3 (0.84-5.20); LYMPHOCYTES PERCENT AUTO 17 % (21-46); MONOCYTES ABSOLUTE AUTO 0.27 K/mm3 (0.16-1.47); MONOCYTES PERCENT AUTO 4 % (4-13); Mean Corpuscular HGB 35.5 pg (26.0-34.0); Mean Corpuscular HGB Conc 32.9 g/dL (31.5-36.5); Mean Corpuscular Volume 108 fL (80-100); Mean Platelet Volume 9.8 fL (9.1-12.4); NRBC ABSOLUTE 0.03 K/mm3 (0.00-0.02); NRBC Auto 0.5 /100 WBC (0.0-0.2); RDW Coefficient Variation 18.4 % (11.7-14.2); White Blood Cell Count 6.38 K/mm3 (4.00-11.30)
[2021-02-26 03:34] LABS: BASOPHILS PERCENT AUTO 0 % (0-2); EOSINOPHILS ABSOLUTE AUTO 0.15 K/mm3 (0.00-0.68); EOSINOPHILS PERCENT AUTO 2 % (0-6); IMMATURE GRAN ABSOLUTE AUTO 0.01 K/mm3 (0.00-0.10); IMMATURE GRAN PERCENT AUTO 0 % (0-1); NEUTROPHILS ABSOLUTE AUTO 4.87 K/mm3 (1.96-9.15); NEUTROPHILS PERCENT AUTO 76 % (41-73); Platelet Count 40 K/mm3 (150-400)
[2021-02-26 03:44] LABS: Calcium, Blood 7.5 mg/dL (8.5-10.1); Creatinine, Blood 1.04 mg/dL (0.40-1.00); Magnesium, Blood 1.3 mg/dL (1.6-2.4); Phosphorus, Blood 1.1 mg/dL (2.5-4.9); Potassium, Blood 3.1 mmol/L (3.5-5.5)
--- NOTE | 2021-02-26 04:45 | NUR ---
PT NOTED TO HAVE INCREASED REDNESS TO FACE AND BLOTCHES OF REDNESS TO FACE. NOTED AFTER FIRST DOSE OF VANCOMYCIN. DR. BURTON NOTIFIED. ORDERS RECEIVED TO HOLD VANCOMYCIN UNTIL PT IS SEEN BY MORNING HOSPITALIST.
--- NOTE | 2021-02-26 06:16 | NUR ---
SHIFT SUMMARY PT CONTINUES TO NOT FOLLOW COMMANDS, DOES NOT TRACK. PT AAOX2. PT HAS BEEN CONTINOUS MOANING AND WAXING AND WANING, HOSPITALIST NOTIFIED, MORPHINE ORDERED AND GIVEN ORDERED. PT TOLERATES MORPHINE BUT UPON PHYSICAL STIMULATION PT STARTS TO MOAN AND GROAN. PT REMAINS IN ST, BP NORMOTENSIVE. O2 SATURATIONS HAVE BEEN IN 87%- 94%. PT HAS BEEN TACHYPENIC. PT HAD CRITICAL VALUE OF PLT COUNT OF 40. DR BURTON NOTIFIED NO NEW ORDERS RECEIVED. NO ACUTE DISTRESS NOTED AT THIS TIME. SAFETY MEASURES IN PLACE. REPORT TO BE GIVEN TO DAY SHIFT RN.
--- NOTE | 2021-02-26 06:41 | NUR ---
DOBHOFF IN PLACE, NEPRO TUBE FEEDING AT GOAL @25ML/HR AND Q4 H20 FLUSHES AT 30ML/HR.
--- NOTE | 2021-02-26 07:42 | NUR ---
ASSUMED CARE RECEIVED REPORT FROM MELODY SANCHEZ AT 0700. PT CONTINUES A&O X0, UNABLE TO OPEN EYES, TRACK, OR FOLLOW ANY COMMANDS. CURRENTLY MOANING, TURNING HEAD SIDE TO SIDE AND WITHDRAWS ARMS TOWARDS HER CHIN. LIMBS ARE STIFF, NO PURPOSEFUL MOVEMENTS. 15L HIGH FLOW O2 ON, SPO2 92-94%, HOWEVER WHEN MASK IS REMOVED, QUICKLY DESATS INTO HIGH 70'S. LUNGS CLEAR, DIM IN BASES. HR ST IN 100-110'S. BP STABLE. DOBHOFF IN PLACE TO RIGHT NARE, NEPRO TF AT GOAL OF 25ML/HR. VALVERDE PATENT, DRAINING YELLOW, CLEAR URINE. PT APPEARS TO BE HAVING MENSES. SHE HAS LARGE BRUISES SCATTERED T/O, SMALL LUMP AND BRUISING ON LEFT UPPER ARM. CALL PLACED TO DR. MUÑOZ THIS AM FOR MAG OF 1.3, PHOS OF 1.1, PLATELET OF 40, AND AMMONIA OF 41. ORDERS GIVEN FOR MAGNESIUM REPLACEMENT AND KPHOS. WILL HOLD LOVENOX TODAY ONLY, AND CHANGING LACTULOSE TO PER TUBE X2 DOSES. D/C LACTULOSE ENEMAS. ORDERS REVIEWED AND WILL TREAT PRESCRIBED.
[2021-02-26 08:37] LABS: Vancomycin, Trough 5.2 ug/mL (5.0-10.0)
--- NOTE | 2021-02-26 10:33 | NUR ---
Pt's mother, Clementine, called and was updated on pt's status at this time.
--- NOTE | 2021-02-26 18:44 | NUR ---
PT REMAINS A&O X0. DOES NOT RESPOND TO COMMANDS, UNABLE TO OPEN EYES. CONTINUES TO WITHDRAW ARMS TO CHIN. CONTINUES TO NEED 15L 02 NON-REBREATHER, SPO2 88-94%. HR REMAINS SINUS TACH IN 110'S, BP STABLE. TUBE FEED CONTINUES AT GOAL OF 25ML/HR. BOWEL TONES ACTIVE. VALVERDE PATENT AND DRAINING TO GRAVITY, DARK YELLOW CLEAR URINE. PRN MORPHINE GIVEN EVERY 4 HOURS, BUT PT CONTINUES TO MOAN OUT FREQUENTLY. PT'S MOTHER CAME TO VISIT AND WAS UPDATED ON PLAN OF CARE. WILL REPORT TO ONCOMING SHIFT.
--- NOTE | 2021-02-26 19:40 | NUR ---
ASSUMED CARE REPORT RECEIVED FROM DAY SHIFT RN. PT IS NOW MED STATUS. PT IS AAXO, WAXES AND WANES OVER THE BED, CONSTANTLY MOANS AND GROANS. PT IS ON NON-BREATHER MASK, PT SATURATIONS BETWEEN 88-90%. PT HAS DOBHOFF TO RIGHT NARE, NEPRO TUBE FEEDING AT 25ML/HR (GOAL). SAFETY MEASURES IN PLACE. WILL CONTINUE TO MONITOR.
[2021-02-27 03:39] LABS: Magnesium, Blood 1.2 mg/dL (1.6-2.4); Phosphorus, Blood 2.5 mg/dL (2.5-4.9)
--- NOTE | 2021-02-27 06:24 | NUR ---
SHIFT SUMMARY NO ACUTE EVENTS. NO CHANGE IN MENTAL STATUS, PT DOES OCCASSIONALLY MOAN, PRN MORPHINE GIVEN AND PT TOLERATES WELL. NSR-ST ON MONITOR. NEPRO TUBE FEEDING RUNNING VIA RIGHT NARE DOBHOFF. SAFETY MEASURES IN PLACE. REPORT TO BE GIVEN TO DAY SHIFT RN.
[2021-02-27 08:17] LABS: Vancomycin, Trough 22.6 ug/mL (5.0-10.0)
[2021-02-27 08:37] LABS: Hematocrit 29.9 % (33.0-51.0); LYMPHOCYTES ABSOLUTE AUTO 0.95 K/mm3 (0.84-5.20); LYMPHOCYTES PERCENT AUTO 12 % (21-46); MONOCYTES ABSOLUTE AUTO 0.44 K/mm3 (0.16-1.47); MONOCYTES PERCENT AUTO 6 % (4-13); Mean Corpuscular HGB 36.2 pg (26.0-34.0); Mean Corpuscular HGB Conc 33.4 g/dL (31.5-36.5); Mean Corpuscular Volume 108 fL (80-100); Mean Platelet Volume 11.7 fL (9.1-12.4); RDW Coefficient Variation 16.3 % (11.7-14.2); RDW Standard Deviation 65.1 fL (35.1-46.3); Red Blood Cell Count 2.76 M/mm3 (3.80-5.20); White Blood Cell Count 8.03 K/mm3 (4.00-11.30)
[2021-02-27 08:42] LABS: BASOPHILS PERCENT AUTO 0 % (0-2); EOSINOPHILS ABSOLUTE AUTO 0.39 K/mm3 (0.00-0.68); EOSINOPHILS PERCENT AUTO 5 % (0-6); IMMATURE GRAN ABSOLUTE AUTO 0.06 K/mm3 (0.00-0.10); IMMATURE GRAN PERCENT AUTO 1 % (0-1); NEUTROPHILS ABSOLUTE AUTO 6.19 K/mm3 (1.96-9.15); NEUTROPHILS PERCENT AUTO 77 % (41-73)
[2021-02-27 08:43] LABS: Platelet Count 34 K/mm3 (150-400)
[2021-02-27 08:56] LABS: Anion Gap 7 mmol/L (6-16); Blood Urea Nitrogen 20 mg/dL (8-24); Bun/Creatinine Ratio 25.9 (12.0-20.0); CO2, Blood 27 mmol/L (21-32); Calcium, Blood 7.5 mg/dL (8.5-10.1); Chloride, Blood 106 mmol/L (98-108); Creatinine, Blood 0.77 mg/dL (0.40-1.00); Glomerular Filtration Rate >60 (60-); Glucose, Blood 126 mg/dL (70-99); Potassium, Blood 2.9 mmol/L (3.5-5.5); Sodium, Blood 140 mmol/L (136-145)
[2021-02-27 09:09] LABS: BAND PERCENT MAN 3 % (0-8); BASOPHILS PERCENT MAN 0 % (0-2); EOSINOPHILS PERCENT MAN 0 % (0-6); LYMPHOCYTES ABSOLUTE MAN 0.48 K/mm3 (0.84-5.20); LYMPHOCYTES PERCENT MAN 6 % (21-46); MONOCYTES PERCENT MAN 10 % (4-13); MYELOCYTE ABSOLUTE MAN 0.08 K/mm3 (0.00-0.00); MYELOCYTE PERCENT MAN 1 % (0-0); NEUTROPHILS ABSOLUTE MAN 6.66 K/mm3 (1.96-9.15); SEG NEUTROPHILS PERCENT MAN 80 % (41-73); TOTAL CELLS COUNTED 100
--- NOTE | 2021-02-27 09:31 | NUR ---
AM NOTE... ASSUMED CARE OF PT AT 0700, PT IS MOANING AND THRASHING ON THE BED, PT IS ALSO GRIMACING. PT IS NOT FOLLOWING COMMANDS. PT IS ON 15L NONREBREATHER WITH O2 SATS 81-91% L/S COARSE IN THE UPPER LOBES DIM IN THE LOWER LOBES. BT PRESENT AND HYPOACTIVE, ABD IS SOFT AND NONTENDER TO PALP. VALVERDE IS PATENT AND DRAINING TO GRAVITY. DOBHOFF IN PLACE WITH TUBE FEEDS RUNNING AT 25MLS/HR PER ORDERS. WILL CONTINUE TO MONITOR.
--- NOTE | 2021-02-27 14:24 | NUR ---
Pt's 02 sats have been decreasing; intermittently dropping to between 80-86%. Pt continues to moan, grimace and cry out. Met with pt's mom and dad, along with Leslie Wright, pt's closest childhood friend. I gently explained the situation regarding her decreasing oxygen level, and what appears to be uncontrolled pain. I also explained that increasing low levels of oxygen would not be compatible with life. I explained that Dr. Holbrook had ordered a CT scan of her head to be done today, and if there were no obvious reasons for the decline we're seeing, it is time to talk about comfort care. Both parents are in agreement with changing pt to comfort care if the CT of pt's head shows no new issus. They were both tearful duing our discussion, but at the end they both agree that if the CT shows no changes, the focus will become Comfort Care for the patient.
--- NOTE | 2021-02-27 17:32 | NUR ---
PT UPDATE.... PT WAS MADE COMFORT CARE, THE DECISION WAS MADE BY THE PT'S PARENTS. COMFORT CARE ORDERS PLACED BY PALLIATIVE CARE RN. WILL CONTINUE TO MONITOR.
--- NOTE | 2021-02-27 17:42 | NUR ---
Dr. Holbrook called ICU bedside RN. CT of pt's head negative, and family is opting for comfort care. Verbal orders given by Dr. Holbrook. Condolences given to family. Both of pt's parents remain present along with her best childhood friend. They state they will be consoling each other, and decline a statistician at this time.
--- NOTE | 2021-02-27 19:28 | NUR ---
ASSUMED CARE OF PT AT 1915. REPORT RECEIVED AT BEDSIDE. PT PRESENTS IN BED. HAS JUST BEEN MEDICATED WITH DILAUDID PER OFF GOING RN. PT IN NO APPARENT DISTRESS AT THIS TIME. DISCUSSED WITH FAMILY THAT PT MAY BE MOVED THIS NIGHT TO A MEDICAL FLOOR BED LATER THIS SHIFT. ALL ACKNOWLEDGE. WILL REVIEW CHART AND PLAN OF CARE FOR THIS PT.
--- NOTE | 2021-02-27 20:22 | NUR ---
REPORT GIVEN TO MELODY MARES FOR PENDING TRANSFER TO ROOM 332. PT CARE AND COMFORT STATUS. ADMINISTERED 1 MG ATIVAN AND 5 MG ROXANOL FOR ANXIOUSNESS AND MOANING. THIS HAS GOOD RESULTS. WILL MONITOR.
--- NOTE | 2021-02-28 01:46 | NUR ---
CLOVER WEARING A NRB AT 14LPM FOR DYSPNEA EVIDENCED BY TACHYPNEA. ABLE TO REST COMFORTABLY LONG RN IS NOT TOUCHING HER OR TRYING TO ADMINISTER MEDICATIONS. RESPONDING TO FAMILY (BOYFRIEND AND HER MOM) IN MOANS/GRIMACES.
--- NOTE | 2021-02-28 01:49 | NUR ---
[facility] ORALIA RECEIVED PRN PAIN MEDICATION DUE TO AGITATION, TENSE MOVEMENTS, TWISTING HEAD AND MOVING ARMS. REPOSITIONED SIDE LYING LEFT SIDE WITH PILLOW FOR SUPPORT. NRB AT 14LPM. AFTER FAMILY LEFT, LIGHTS DIMMED/CLASSICAL MUSIC QUIETLY PLAYING IN BACKGROUND. ORALIA IS ABLE TO SLEEP QUIETLY, UNLESS RN DISTURBS HER, THEN SHE WILL GROAN AND GO BACK TO SLEEP. EYES OPEN OCCASSIONALLY.
--- NOTE | 2021-02-28 03:08 | NUR ---
PT DIAPHORETIC AND WARM TO TOUCH, REPOSITIONED LEGS BY FLOATING AND APPLYING HEEL PROTECTORS, REMOVED EXTRA BEDDING AND PROVIDED FAN ON LOW SETTING. OTHER THAN OCCASSIONAL MOAN WITH EXTREMITIES FLEXED, PT MOSTLY RESTING QUIETLY UNLESS TOUCHED OR DISTURBED BY STAFF FOR REPOSITIONING OR IV ACCESS.
--- NOTE | 2021-02-28 03:46 | NUR ---
SHIFT SUMMARY PT ARRIVED ON UNIT AT 2057, SHE WAS TRANSFERRED FROM ICU BED TO MEDICAL BED VIA SLIDE SHEET AND THREE STAFF MEMBERS. 14LPM VIA NON-REBREATHER MASK. SHALLOW RESPIRATIONS. PT WILL OPEN EYES TO VERBAL STIMULI INTERMITTENTLY. MOSTLY SHE IS RESTING, BUT WILL GRIMACE/MOAN IF STAFF TOUCH PT TO PERFORM CARE. MEDICATED PER PRN'S FOR OCCASSIONAL GRIMACING/MOANING AND FLEXED ARMS. ORALIA WAS VISITED BY HER MOM LEAH, AND HER S/O TIFFANI. SHE OPENED HER EYES AND INTERACTED VIA MOANING TO THEIR QUESTIONS. ORAL CARE PROVIDED, ALTHOUGH PT ATTEMPTS TO PULL AWAY. BED IN LOWEST POSITION, BED ALARM ON, WILL CONTINUE TO MONITOR.
--- NOTE | 2021-02-28 05:08 | NUR ---
ORAL CARE COMPLETED - APPLIED LIP MOISTURIZER. PRN PAIN MEDICATION ADMINISTERED DUE TO GRUNTING/HICCUPS. CLOVER GROANED WHEN TOUCHED BY RN, OTHERWISE CLOSED EYES AND APPEARED TO BE RESTING.
--- NOTE | 2021-02-28 08:00 | NUR ---
PT RESTING IN BED ON R SIDE, PT MOANS WITH TURNING. REPOSTITIONED PT IN BED AND PROVIDED PERSONAL CARE AND ORAL CARE. PT MEDICATED PER EMAR. SIGNIFICANT OTHER PRESENT AT BEDSIDE.
--- NOTE | 2021-02-28 10:00 | NUR ---
PT MAONING AND CRYING. PERSONAL CARE COMPLETED, PT MEDICATED PER EMAR, MULTIPLE FAMILY MEMBERS AT BEDSIDE. CHELSEY FROM PALLITIAVE [facility]ARE IN TO DISCUSS P'S TRANSITION AND END OF LIFE WITH FAMILY.
--- NOTE | 2021-02-28 10:43 | NUR ---
Comfort Care Visit Pt resting in bed with her eyes closed upon arrival. Lots of family at bedside. Pt appears comfortable at this time. Answered questions and offered emotional support. Educated on possible S/S Pt may experience. Pt appears to be transitioning. Discussed the importance of speaking with Pt and reasurring Pt. Family expresses appreciation and report no other concerns at this time. Spoke with Primary RN Bela and discussed case. Palliative Care will remain available.
--- NOTE | 2021-02-28 14:00 | NUR ---
PT RESTING COMFORTABLY, NO S/S OF DISTRESS. BED BATH DONE AND NG TUBE REMOVED PER MD ORDER. FAMILY AT BEDSIDE
--- NOTE | 2021-02-28 16:06 | NUR ---
PT PT COOL TOUCH, NO RESP/CHEST RISE NOTED. RN IN TO ASSESS, NO HEART BEAT, TOUR CONDUCTOR IN TO CONFIRM PT TIME OF AT 1606. PT FAMILY PRESENT AND AWARE, NOTIFIED. LIST OF MORTUARIES IN AREA PROVIDED TO FAMILY.
== END 2021-02-28 16:06 | DRG 432 ==
LOC: ER 19:42 → ICUE 22:55 → ICUW 22:55 → ICUE 23:40 → MEDS 02-27 20:58
PROVIDERS: Emergency Medicine; Family Medicine; Internal Medicine; ADMIT Internal Medicine
PROC: HZ2ZZZZ Detoxification Services for Substance Abuse Treatment (ICD-10-PCS; principal; 2021-02-21)
DX: K70.41 Alcoholic hepatic failure with coma (principal); G93.41 Metabolic encephalopathy; J69.0 Pneumonitis due to inhalation of food and vomit; J15.212 Pneumonia due to Methicillin resistant Staphylococcus aureus; J96.00 Acute respiratory failure, unspecified whether with hypoxia or hypercapnia; E87.2 Acidosis; E87.1 Hypo-osmolality and hyponatremia; E72.20 Disorder of urea cycle metabolism, unspecified; Z51.5 Encounter for palliative care; Z66 Do not resuscitate; Z20.822 Contact with and (suspected) exposure to COVID-19; F32.A Depression, unspecified; G62.9 Polyneuropathy, unspecified; F10.20 Alcohol dependence, uncomplicated; F41.8 Other specified anxiety disorders; K70.10 Alcoholic hepatitis without ascites; E86.0 Dehydration; E16.2 Hypoglycemia, unspecified; K70.30 Alcoholic cirrhosis of liver without ascites; E87.6 Hypokalemia; D69.59 Other secondary thrombocytopenia; E83.39 Other disorders of phosphorus metabolism; E83.42 Hypomagnesemia
CPT/HCPCS: 0241U; 31720; 36415; 51701; 70450; 70496; 71045; 74018; 76705; 80048; 80053; 80069; 80076; 80202; 81001; 81025; 82010; 82140; 82550; 82607; 82746; 82803; 82947; 83605; 83690; 83735; 84100; 84132; 84145; 84443; 85025; 85610; 87040; 93005; 93010; 94762; 95819; 96365; 96375; 99285-25; A9270; G0480; J0696; J1170; J1610; J1650; J1953; J2060; J2270; J2405; J3370; J3411; J3475; J3480; J7042; J7050; J7060; J7070; J7120; Q9967